=== PATIENT | male | born 1960 | race Caucasian/White ===

== ENCOUNTER → 2017-08-08 | Outpatient (CLI) | payer OTHER ==
[~2017-08-08] MED LIST: AMIT50 PO; Amoxicillin500 MG PO; Biaxin500 MG PO; HYDR1TAB94 PO; IBUP600 PO; IBUP800 PO; Naprosyn500 MG PO; Norco 5-325 Ta1 EACH PO; Omeprazole20 M1 PO; Percocet 5-3251 EACH PO; Protonix40 MG PO; Tylenol325 MG PO; Ultram50 MG PO
== END ==
LOC: LAB SHORT 18:30 → LAB 18:30
DX: L02.414 Cutaneous abscess of left upper limb (principal)
CPT/HCPCS: 87070; 87075; 87077; 87147; 87186; 87205

== ENCOUNTER 2017-11-06 20:10 | Emergency (ER) | payer OTHER ==
[~2017-11-06] VITALS: Ht 188 cm; Wt 86.2 kg
[2017-11-06] MEDS ORDERED: [UNRECOGNIZED DRUG - REMARK] (20:47)
[2017-11-06 21:03] LABS: BASOPHILS ABSOLUTE AUTO 0.07 K/mm3 (0.00-0.23); BASOPHILS PERCENT AUTO 1 % (0-2); EOSINOPHILS PERCENT AUTO 2 % (0-6); Hematocrit 42.6 % (37.0-53.0); Hemoglobin 14.3 g/dL (13.5-17.5); IMMATURE GRAN ABSOLUTE AUTO 0.02 K/mm3 (0.00-0.10); IMMATURE GRAN PERCENT AUTO 0 % (0-1); LYMPHOCYTES ABSOLUTE AUTO 1.61 K/mm3 (0.84-5.20); LYMPHOCYTES PERCENT AUTO 19 % (21-46); MONOCYTES ABSOLUTE AUTO 0.65 K/mm3 (0.16-1.47); MONOCYTES PERCENT AUTO 8 % (4-13); Mean Corpuscular HGB 30.1 pg (26.0-34.0); Mean Corpuscular HGB Conc 33.6 g/dL (31.5-36.5); Mean Corpuscular Volume 90 fL (80-100); Mean Platelet Volume 9.5 fL (9.1-12.4); NEUTROPHILS ABSOLUTE AUTO 5.82 K/mm3 (1.96-9.15); NEUTROPHILS PERCENT AUTO 70 % (41-73); Platelet Count 296 K/mm3 (150-400); RDW Coefficient Variation 12.8 % (11.7-14.2); RDW Standard Deviation 42.6 fL (35.1-46.3); Red Blood Cell Count 4.75 M/mm3 (4.30-5.90); White Blood Cell Count 8.37 K/mm3 (4.00-11.30)
[2017-11-06 21:22] LABS: Alanine Aminotransfer (ALT/SGP 17 U/L (12-78); Albumin/Globulin Ratio 1.2 (0.8-1.8); Alk Phos 87 U/L (50-136); Anion Gap 8 mmol/L (6-16); Aspartate Aminotrans (AST/SGOT 13 U/L (12-37); Blood Urea Nitrogen 18 mg/dL (8-24); Bun/Creatinine Ratio 20.4 (12.0-20.0); CO2, Blood 27 mmol/L (21-32); Chloride, Blood 102 mmol/L (98-108); Creatinine, Blood 0.88 mg/dL (0.60-1.20); Globulin, Blood 3.4 g/dL (2.2-4.0); Glomerular Filtration Rate >60 (60-); Glucose, Blood 87 mg/dL (70-99); Potassium, Blood 4.4 mmol/L (3.5-5.5); Sodium, Blood 137 mmol/L (136-145); Total Protein, Blood 7.4 g/dL (6.4-8.2); Troponin I <0.015 ng/mL (0.000-0.040)
== END 2017-11-06 23:38 | disposition home or self-care (01) ==
LOC: ER 20:10
PROVIDERS: Emergency Medicine
DX: M54.12 Radiculopathy, cervical region (principal); Z88.5 Allergy status to narcotic agent; Z87.891 Personal history of nicotine dependence
CPT/HCPCS: 36415; 71046; 80053; 84484; 85025; 93005; 93010; 96374; 99284-25; J1885

== ENCOUNTER 2017-12-07 04:52 | Emergency (ER) | payer OTHER ==
[~2017-12-07] VITALS: Ht 188 cm; Wt 88.5 kg
[~2017-12-07 04:52] MED LIST changes: +[UNRECOGNIZED DRUG - REMARK]
[2017-12-07] MEDS ORDERED: Ultram50 MG PO (05:22)
== END 2017-12-07 05:35 | disposition home or self-care (01) ==
LOC: ER 04:52
DX: G89.29 Other chronic pain (principal); M25.551 Pain in right hip; M25.552 Pain in left hip; Z88.5 Allergy status to narcotic agent; Z87.891 Personal history of nicotine dependence
CPT/HCPCS: 96372; 99283; J1885

== ENCOUNTER 2017-12-07 06:20 | Emergency (ER) | payer OTHER ==
[~2017-12-07] VITALS: Ht 188 cm; Wt 88.5 kg
== END 2017-12-07 07:09 | disposition home or self-care (01) ==
LOC: ER 06:20
DX: M17.11 Unilateral primary osteoarthritis, right knee (principal); Z87.891 Personal history of nicotine dependence
CPT/HCPCS: 73562-RT; 99283-25

== ENCOUNTER 2018-08-02 10:15 | Emergency (ER) | payer OTHER ==
[~2018-08-02] VITALS: Ht 188 cm; Wt 74.8 kg
[~2018-08-02 10:15] MED LIST changes: +CEPH500 PO
== END 2018-08-02 11:53 | disposition home or self-care (01) ==
LOC: ER 10:15
DX: M25.551 Pain in right hip (principal); Z87.891 Personal history of nicotine dependence; W18.30XA Fall on same level, unspecified, initial encounter
CPT/HCPCS: 73502; 99283-25

== ENCOUNTER 2018-08-14 07:02 | Emergency (ER) | payer OTHER ==
[~2018-08-14] VITALS: Ht 188 cm; Wt 77.1 kg
[2018-08-14] MEDS ORDERED: Augmentin 500-1 EACH PO (07:43)
== END 2018-08-14 09:18 | disposition home or self-care (01) ==
LOC: ER 07:02
DX: J18.1 Lobar pneumonia, unspecified organism (principal); Z88.5 Allergy status to narcotic agent; Z87.891 Personal history of nicotine dependence
CPT/HCPCS: 71046; 99283-25

== ENCOUNTER 2018-11-16 09:31 | Emergency (ER) | payer OTHER ==
[~2018-11-16] VITALS: Ht 188 cm; Wt 83.9 kg
[~2018-11-16 09:31] MED LIST changes: +Augmentin 500-1 EACH PO
[2018-11-16] MEDS ORDERED: HYDR1TAB94 PO (10:45)
[2018-11-16] MEDS ORDERED: Arthritis Pai42.5 GM TOP (10:45)
[2018-11-16] MEDS ORDERED: IBUP600 PO (10:45)
== END 2018-11-16 11:14 | disposition home or self-care (01) ==
LOC: ER 09:31
DX: M25.551 Pain in right hip (principal); G89.29 Other chronic pain; M19.90 Unspecified osteoarthritis, unspecified site; Z88.5 Allergy status to narcotic agent; Z87.891 Personal history of nicotine dependence
CPT/HCPCS: 73522; 99283-25; A9270-GY

== ENCOUNTER 2018-12-06 13:04 | Emergency (ER) | payer OTHER ==
[~2018-12-06] VITALS: Ht 175.3 cm; Wt 72.6 kg
[~2018-12-06 13:04] MED LIST changes: +Arthritis Pai42.5 GM TOP
== END 2018-12-06 15:18 | disposition home or self-care (01) ==
LOC: ER 13:04
DX: G89.29 Other chronic pain (principal); M25.551 Pain in right hip; Z88.5 Allergy status to narcotic agent; Z79.899 Other long term (current) drug therapy; Z87.891 Personal history of nicotine dependence
CPT/HCPCS: 99283; A9270-GY

== ENCOUNTER 2019-02-17 08:44 | Emergency (ER) | payer OTHER ==
[~2019-02-17] VITALS: Ht 185.4 cm; Wt 86.2 kg
[2019-02-17] MEDS ORDERED: Norco 5-325 Ta1 EACH PO ×2 (09:19→09:20)
[2019-02-17] MEDS ORDERED: CYCL10 PO (09:19)
== END 2019-02-17 10:15 | disposition home or self-care (01) ==
LOC: ER 08:44
DX: G89.29 Other chronic pain (principal); M25.551 Pain in right hip; M25.552 Pain in left hip; Z88.5 Allergy status to narcotic agent; Z87.891 Personal history of nicotine dependence
CPT/HCPCS: 36415; 96374; 96375; 99284-25; J1170; J2405

== ENCOUNTER 2019-04-02 22:06 | Emergency (ER) | payer OTHER ==
[~2019-04-02] VITALS: Ht 188 cm; Wt 88.5 kg
[~2019-04-02 22:06] MED LIST changes: +CYCL10 PO
== END 2019-04-03 01:41 | disposition home or self-care (01) ==
LOC: ER 22:06
DX: T24.132A Burn of first degree of left lower leg, initial encounter (principal); T31.0 Burns involving less than 10% of body surface; Z87.891 Personal history of nicotine dependence
CPT/HCPCS: 99283

== ENCOUNTER 2019-08-21 22:31 | Emergency (ER) | payer OTHER ==
[~2019-08-21] VITALS: Ht 188 cm; Wt 90.7 kg
== END 2019-08-21 23:37 | disposition home or self-care (01) ==
LOC: ER 22:31
DX: M16.0 Bilateral primary osteoarthritis of hip (principal); Z87.891 Personal history of nicotine dependence
CPT/HCPCS: 72170; 96372; 99283-25; A9270; J1885

== ENCOUNTER 2019-08-26 04:07 | Emergency (ER) | payer OTHER ==
[~2019-08-26] VITALS: Ht 182.9 cm; Wt 90.7 kg
== END 2019-08-26 05:16 | disposition home or self-care (01) ==
LOC: ER 04:07
DX: M25.551 Pain in right hip (principal); M25.552 Pain in left hip; G89.29 Other chronic pain; F17.200 Nicotine dependence, unspecified, uncomplicated
CPT/HCPCS: 99283

== ENCOUNTER 2019-09-30 13:07 | Emergency (ER) | payer OTHER ==
[~2019-09-30] VITALS: Ht 188 cm; Wt 95.2 kg
[2019-09-30] MEDS ORDERED: IBUP800 PO (19:35)
[2019-09-30] MEDS ORDERED: TRAM50 PO (19:35)
== END 2019-09-30 15:13 | disposition left against medical advice (07) ==
LOC: ER 13:07
DX: Z53.21 Procedure and treatment not carried out due to patient leaving prior to being seen by health care provider (principal)
CPT/HCPCS: 99283

== ENCOUNTER 2019-09-30 15:59 | Emergency (ER) | payer OTHER ==
[~2019-09-30] VITALS: Ht 188 cm; Wt 95.2 kg
[2019-09-30] MEDS ORDERED: TRAM50 PO (19:35)
[2019-09-30] MEDS ORDERED: IBUP800 PO (19:35)
== END 2019-09-30 19:56 | disposition home or self-care (01) ==
LOC: ER 15:59
DX: M16.0 Bilateral primary osteoarthritis of hip (principal); F17.200 Nicotine dependence, unspecified, uncomplicated
CPT/HCPCS: 96372; 99283-25; A9270-GY; J1885

== ENCOUNTER 2020-01-26 14:46 | Emergency (ER) | payer OTHER ==
[~2020-01-26] VITALS: Ht 188 cm; Wt 86.2 kg
[~2020-01-26 14:46] MED LIST changes: +TRAM50 PO
[2020-01-26] MEDS ORDERED: Bactrim Ds Tab1 EACH PO (15:44)
== END 2020-01-26 16:39 | disposition home or self-care (01) ==
LOC: ER 14:46
DX: L02.13 Carbuncle of neck (principal); F17.200 Nicotine dependence, unspecified, uncomplicated
CPT/HCPCS: 10060; 99283-25

== ENCOUNTER 2020-04-12 22:26 | Emergency (ER) | payer OTHER ==
[~2020-04-12] VITALS: Ht 188 cm; Wt 90.7 kg
[~2020-04-12 22:26] MED LIST changes: +Bactrim Ds Tab1 EACH PO
[2020-04-12] MEDS ORDERED: IBU600 MG PO (22:34)
== END 2020-04-12 23:25 | disposition home or self-care (01) ==
LOC: ER 22:26
DX: G89.29 Other chronic pain (principal); M25.552 Pain in left hip; M25.551 Pain in right hip; F17.200 Nicotine dependence, unspecified, uncomplicated
CPT/HCPCS: 96372; 99283-25; J1885

== ENCOUNTER 2020-04-30 18:24 | Emergency (ER) | payer OTHER ==
[~2020-04-30] VITALS: Ht 188 cm; Wt 99.8 kg
[~2020-04-30 18:24] MED LIST changes: +IBU600 MG PO
[2020-04-30] MEDS ORDERED: Voltaren100 GM TOP (19:28)
== END 2020-04-30 19:38 | disposition home or self-care (01) ==
LOC: ER 18:24
DX: M25.552 Pain in left hip (principal); M25.551 Pain in right hip; F17.200 Nicotine dependence, unspecified, uncomplicated
CPT/HCPCS: 96372; 99283-25; J1885

== ENCOUNTER 2020-05-09 18:21 | Emergency (ER) | payer OTHER ==
[~2020-05-09] VITALS: Ht 188 cm; Wt 99.8 kg
[~2020-05-09 18:21] MED LIST changes: +Voltaren100 GM TOP
== END 2020-05-09 20:26 | disposition home or self-care (01) ==
LOC: ER 18:21
DX: M25.551 Pain in right hip (principal); R07.89 Other chest pain; F17.200 Nicotine dependence, unspecified, uncomplicated; W06.XXXA Fall from bed, initial encounter
CPT/HCPCS: 71101; 73502; 99283-25

== ENCOUNTER 2020-08-21 20:51 | Emergency (ER) | payer OTHER ==
[~2020-08-21] VITALS: Ht 188 cm; Wt 95.2 kg
== END 2020-08-21 22:55 | disposition home or self-care (01) ==
LOC: ER 20:51
DX: M25.512 Pain in left shoulder (principal); Z87.891 Personal history of nicotine dependence
CPT/HCPCS: 73030; 99283-25

== ENCOUNTER 2021-03-23 14:39 | Emergency (ER) | payer OTHER ==
[~2021-03-23] VITALS: Ht 188 cm; Wt 95.2 kg
== END 2021-03-23 18:58 | disposition home or self-care (01) ==
LOC: ER 14:39
DX: M16.0 Bilateral primary osteoarthritis of hip (principal)
CPT/HCPCS: 73522; 99283-25; A9270

== ENCOUNTER 2021-12-14 02:50 | Emergency (ER) | payer OTHER ==
[~2021-12-14] VITALS: Ht 188 cm; Wt 104.3 kg
== END 2021-12-14 07:17 | disposition home or self-care (01) ==
LOC: ER 02:50
DX: M25.552 Pain in left hip (principal); F17.200 Nicotine dependence, unspecified, uncomplicated; W01.0XXA Fall on same level from slipping, tripping and stumbling without subsequent striking against object, initial encounter
CPT/HCPCS: 73502; 73700; 99284-25; A9270

== ENCOUNTER 2021-12-19 13:36 | Emergency (ER) | payer OTHER ==
[~2021-12-19] VITALS: Ht 188 cm; Wt 104.3 kg
[2021-12-19] MEDS ORDERED: IBUP600 PO (15:30)
== END 2021-12-19 18:16 | disposition home or self-care (01) ==
LOC: ER 13:36
DX: M25.552 Pain in left hip (principal); W01.0XXA Fall on same level from slipping, tripping and stumbling without subsequent striking against object, initial encounter; Z87.891 Personal history of nicotine dependence
CPT/HCPCS: 73523; 96372; 99283-25; J1885

== ENCOUNTER 2021-12-29 13:40 | Emergency (ER) | payer OTHER ==
[~2021-12-29] VITALS: Ht 188 cm; Wt 99.8 kg
== END 2021-12-29 19:00 | disposition home or self-care (01) ==
LOC: ER 13:40
DX: M25.552 Pain in left hip (principal); M25.551 Pain in right hip; M19.90 Unspecified osteoarthritis, unspecified site; Z59.00 Homelessness unspecified; Z87.891 Personal history of nicotine dependence
CPT/HCPCS: J1885

== ENCOUNTER 2021-12-30 13:39 | Emergency (ER) | payer OTHER ==
[~2021-12-30] VITALS: Ht 188 cm; Wt 99.8 kg
== END 2021-12-30 17:02 | disposition home or self-care (01) ==
LOC: ER 13:39
DX: M16.12 Unilateral primary osteoarthritis, left hip (principal); G89.29 Other chronic pain; Z87.891 Personal history of nicotine dependence; W19.XXXA Unspecified fall, initial encounter
CPT/HCPCS: 73502; 99283-25

== ENCOUNTER → 2022-01-21 | Emergency (ER) | payer OTHER ==
[~2022-01-21] VITALS: Ht 167.6 cm; Wt 99.8 kg
== END ==
LOC: ER 22:31
DX: M25.551 Pain in right hip (principal); M25.552 Pain in left hip; Z87.891 Personal history of nicotine dependence; W05.0XXA Fall from non-moving wheelchair, initial encounter
CPT/HCPCS: 73502

== ENCOUNTER 2022-02-07 | Emergency (ER) | payer OTHER ==
[2022-02-07] MEDS ORDERED: LIDO700A20 TOP (19:20)
[2022-02-07] MEDS ORDERED: IBUP600 PO (19:20)
== END 2022-02-07 02:30 | disposition home or self-care (01) ==
DX: M16.0 Bilateral primary osteoarthritis of hip (principal); Z87.891 Personal history of nicotine dependence; Z59.00 Homelessness unspecified

== ENCOUNTER 2022-02-07 17:48 | Emergency (ER) | payer OTHER ==
[2022-02-07] MEDS ORDERED: LIDO700A20 TOP (19:20)
[2022-02-07] MEDS ORDERED: IBUP600 PO (19:20)
== END 2022-02-07 19:49 | disposition home or self-care (01) ==
DX: M16.0 Bilateral primary osteoarthritis of hip (principal); Z87.891 Personal history of nicotine dependence

== ENCOUNTER 2022-02-10 03:10 | Emergency (ER) | payer OTHER ==
[~2022-02-10] VITALS: Ht 188 cm; Wt 99.8 kg
[~2022-02-10 03:10] MED LIST changes: +LIDO700A20 TOP
[2022-02-10] MEDS ORDERED: ACET500 PO (06:51)
[2022-02-10] MEDS ORDERED: IBUP400 PO (06:51)
== END 2022-02-10 07:30 | disposition home or self-care (01) ==
LOC: ER 03:10
DX: M16.0 Bilateral primary osteoarthritis of hip (principal); G89.29 Other chronic pain; Z87.891 Personal history of nicotine dependence; W05.0XXA Fall from non-moving wheelchair, initial encounter
CPT/HCPCS: 73502; J1885

== ENCOUNTER 2022-02-13 20:45 | Emergency (ER) | payer OTHER ==
[~2022-02-13] VITALS: Ht 188 cm; Wt 99.8 kg
[~2022-02-13 20:45] MED LIST changes: +ACET500 PO; +IBUP400 PO
== END 2022-02-13 23:36 | disposition home or self-care (01) ==
LOC: ER 20:45
DX: R41.0 Disorientation, unspecified (principal); F12.10 Cannabis abuse, uncomplicated; Z87.891 Personal history of nicotine dependence
CPT/HCPCS: 99284

== ENCOUNTER 2022-03-02 14:16 | Emergency (ER) | payer OTHER ==
[~2022-03-02] VITALS: Ht 182.9 cm; Wt 86.2 kg
[2022-03-02] MEDS ORDERED: Prednisone20 MG PO (14:40)
[2022-03-02] MEDS ORDERED: PERM5TC TOP (14:40)
== END 2022-03-02 14:42 | disposition home or self-care (01) ==
LOC: ER 14:16
DX: B86 Scabies (principal); Z87.891 Personal history of nicotine dependence
CPT/HCPCS: 99283

== ENCOUNTER 2022-08-05 16:45 | Emergency (ER) | payer OTHER ==
[~2022-08-05] VITALS: Ht 188 cm; Wt 99.8 kg
[~2022-08-05 16:45] MED LIST changes: +PERM5TC TOP; +Prednisone20 MG PO
[2022-08-05 16:51] VITALS: BP 150/82
[2022-08-05] MEDS ORDERED: NAPR500 PO (18:15)
== END 2022-08-05 18:25 | disposition home or self-care (01) ==
LOC: ER 16:45
DX: M25.551 Pain in right hip (principal); M25.552 Pain in left hip; Z87.891 Personal history of nicotine dependence
CPT/HCPCS: J1885

== ENCOUNTER 2022-08-15 02:20 | Emergency (ER) | payer OTHER ==
[~2022-08-15] VITALS: Ht 170.2 cm; Wt 81.7 kg
[~2022-08-15 02:20] MED LIST changes: +NAPR500 PO
[2022-08-15 02:28] VITALS: BP 139/83
== END 2022-08-15 04:53 | disposition home or self-care (01) ==
LOC: ER 02:20
DX: M25.552 Pain in left hip (principal); G89.29 Other chronic pain; Z59.00 Homelessness unspecified; Z79.899 Other long term (current) drug therapy; Z87.891 Personal history of nicotine dependence
CPT/HCPCS: 73502; 99283-25

== ENCOUNTER 2022-08-15 20:37 | Emergency (ER) | payer OTHER ==
[~2022-08-15] VITALS: Ht 188 cm; Wt 99.8 kg
[2022-08-15 20:58] VITALS: BP 137/81
== END 2022-08-16 00:21 | disposition home or self-care (01) ==
LOC: ER 20:37
DX: R41.0 Disorientation, unspecified (principal); R51.9 Headache, unspecified; G93.89 Other specified disorders of brain; R41.3 Other amnesia; Z79.899 Other long term (current) drug therapy; Z87.891 Personal history of nicotine dependence
CPT/HCPCS: 70450; 99285-25; A9270

== ENCOUNTER 2022-11-08 00:15 | Emergency (ER) | payer OTHER ==
[~2022-11-08] VITALS: Ht 188 cm; Wt 102.1 kg
[2022-11-08 00:21] VITALS: BP 150/96
== END 2022-11-08 00:34 | disposition home or self-care (01) ==
LOC: ER 00:15
DX: M16.0 Bilateral primary osteoarthritis of hip (principal); F17.290 Nicotine dependence, other tobacco product, uncomplicated
CPT/HCPCS: 99282

== ENCOUNTER 2022-11-19 17:57 | Emergency (ER) | payer OTHER ==
[~2022-11-19] VITALS: Ht 188 cm; Wt 99.8 kg
[2022-11-19 18:12] VITALS: BP 148/96
== END 2022-11-19 19:34 | disposition home or self-care (01) ==
LOC: ER 17:57
DX: M16.0 Bilateral primary osteoarthritis of hip (principal); Z87.891 Personal history of nicotine dependence
CPT/HCPCS: 73502; 96372; 99283-25; J1885

== ENCOUNTER 2022-11-22 23:36 | Emergency (ER) | payer OTHER ==
[~2022-11-22] VITALS: Ht 175.3 cm; Wt 90.7 kg
[2022-11-23 00:31] VITALS: BP 143/93
== END 2022-11-23 03:15 | disposition home or self-care (01) ==
LOC: ER 23:36
DX: M25.552 Pain in left hip (principal); M25.551 Pain in right hip; Z87.891 Personal history of nicotine dependence
CPT/HCPCS: 99283

== ENCOUNTER 2022-11-29 16:59 | Inpatient (IN) | payer OTHER ==
[~2022-11-29] VITALS: Ht 188 cm; Wt 105.0 kg
[2022-11-29] MEDS ORDERED: NAPR500 PO (17:42)
[2022-11-29] MEDS ORDERED: ACET325 PO (17:42)
[2022-11-29 18:24] LABS: BASOPHILS ABSOLUTE AUTO 0.08 K/mm3 (0.00-0.23); BASOPHILS PERCENT AUTO 0 % (0-2); EOSINOPHILS ABSOLUTE AUTO 0.05 K/mm3 (0.00-0.68); EOSINOPHILS PERCENT AUTO 0 % (0-6); Hematocrit 46.5 % (37.0-53.0); Hemoglobin 15.9 g/dL (13.5-17.5); IMMATURE GRAN ABSOLUTE AUTO 0.09 K/mm3 (0.00-0.10); IMMATURE GRAN PERCENT AUTO 1 % (0-1); LYMPHOCYTES ABSOLUTE AUTO 0.65 K/mm3 (0.84-5.20); LYMPHOCYTES PERCENT AUTO 4 % (21-46); MONOCYTES ABSOLUTE AUTO 1.21 K/mm3 (0.16-1.47); MONOCYTES PERCENT AUTO 6 % (4-13); Mean Corpuscular HGB 29.9 pg (26.0-34.0); Mean Corpuscular HGB Conc 34.2 g/dL (31.5-36.5); Mean Corpuscular Volume 87 fL (80-100); NEUTROPHILS ABSOLUTE AUTO 16.71 K/mm3 (1.96-9.15); NEUTROPHILS PERCENT AUTO 89 % (41-73); Platelet Count 314 K/mm3 (150-400); RDW Standard Deviation 41.8 fL (35.1-46.3); Red Blood Cell Count 5.32 M/mm3 (4.30-5.90); White Blood Cell Count 18.79 K/mm3 (4.00-11.30)
[2022-11-29 18:51] LABS: Albumin, Blood 3.5 g/dL (3.4-5.0); Albumin/Globulin Ratio 0.9 (0.8-1.8); Bilirubin, Total 1.7 mg/dL (0.1-1.0); Bun/Creatinine Ratio 36.2 (12.0-20.0); Calcium, Blood 9.6 mg/dL (8.5-10.1); Creatinine, Blood 0.72 mg/dL (0.60-1.20); Total Protein, Blood 7.5 g/dL (6.4-8.2)
[2022-11-29 22:11] VITALS: BP 156/93
[2022-11-30 01:19] LABS: BASOPHILS ABSOLUTE AUTO 0.08 K/mm3 (0.00-0.23); BASOPHILS PERCENT AUTO 1 % (0-2); EOSINOPHILS ABSOLUTE AUTO 0.13 K/mm3 (0.00-0.68); EOSINOPHILS PERCENT AUTO 1 % (0-6); Hematocrit 43.1 % (37.0-53.0); Hemoglobin 14.8 g/dL (13.5-17.5); IMMATURE GRAN ABSOLUTE AUTO 0.05 K/mm3 (0.00-0.10); IMMATURE GRAN PERCENT AUTO 0 % (0-1); LYMPHOCYTES PERCENT AUTO 5 % (21-46); MONOCYTES ABSOLUTE AUTO 1.06 K/mm3 (0.16-1.47); MONOCYTES PERCENT AUTO 6 % (4-13); Mean Corpuscular HGB 30.3 pg (26.0-34.0); Mean Corpuscular HGB Conc 34.3 g/dL (31.5-36.5); Mean Corpuscular Volume 88 fL (80-100); Mean Platelet Volume 9.9 fL (9.1-12.4); NEUTROPHILS ABSOLUTE AUTO 14.41 K/mm3 (1.96-9.15); NEUTROPHILS PERCENT AUTO 87 % (41-73); Platelet Count 269 K/mm3 (150-400); RDW Coefficient Variation 12.9 % (11.7-14.2); RDW Standard Deviation 42.2 fL (35.1-46.3); Red Blood Cell Count 4.88 M/mm3 (4.30-5.90); White Blood Cell Count 16.63 K/mm3 (4.00-11.30)
[2022-11-30 01:55] LABS: Bun/Creatinine Ratio 34.2 (12.0-20.0); Calcium, Blood 8.7 mg/dL (8.5-10.1); Creatinine, Blood 0.67 mg/dL (0.60-1.20)
[2022-11-30 03:42] VITALS: BP 141/80
--- NOTE | 2022-11-30 06:55 | NUR ---
Shift Summary Pt arrived to this unit from ER with Dx of LLE cellulits. Pt was lying on his left side on the concrete for 4 days and has multiple pressure ulcers on his L side, most notably on his L hip and foot. He is very weak, hardly able to move his L arm and his R arm is not much better. Eyes are PERRLA. Pt was very thirsty upon arrival to the unit and drank over 2L. He is continent but has a difficult time urinating. His legs are contractured and he cannot seperate his knees at this time. His skin is red and flushed from wounds, sunburn and cellulitis. He is missing all of this teeth, can eat small torn pieces of a sandwitch but requires feeding because arms are too weak. He is AOx4, cooperative with care.
[2022-11-30 08:00] VITALS: BP 149/89
--- NOTE | 2022-11-30 11:29 | NUR ---
PT WAS BATHED AND WOUNDS CLEANSED AND MEPILEX IN PLACE. WOUND CARE CONSULTATION ORDERED.
[2022-11-30 14:22] LABS: Potassium, Blood 4.1 mmol/L (3.5-5.5)
[2022-11-30 15:06] VITALS: BP 115/64
--- NOTE | 2022-11-30 15:30 | NUR ---
COAL WHEELER ATTEMPTED TO SEE PT HOWEVER PT WAS WORKING WITH PHYSICAL THERAPY AT THE TIME. WOUND CARE WILL SEE PT IN THE MORNING.
--- NOTE | 2022-11-30 16:54 | NUR ---
SHIFT SUMMARY PT IS ALERT AND ORIENTED X4. CALM AND COOPERATIVE WITH CARES. TREATED PAIN PER EMAR. BEDREST WITH CONTRACTURES. PT/OT WORKED WITH PT TODAY. WOUND CARE WILL SEE HIM TOMORROW MORNING. TRACED REDDEND AREA ON LLE AND LUE. NO ACUTE CHANGES TODAY. BED IS IN THE LOWEST POSITION WITH CALL LIGHT IN REACH. CALLS APPROPRIATELY
[2022-11-30 19:34] VITALS: BP 116/64
[2022-12-01 03:39] VITALS: BP 101/56
--- NOTE | 2022-12-01 05:07 | NUR ---
SHIFT SUMMARY: NO ACUTE EVENTS. BEDFAST, DECLINED TO BE REPOSITIONED EXCEPT FOR VERY SMALL CHANGES. EDUCATED ABOUT IMPORTANCE OF OFF LOADING PRESSURE TO EXTREMITIES TO PREVENT FURTHER ULCERATIONS BUT STILL DECLINED. C/O 910 PAIN IN LUE AND LLE; MEDICATED PER EMAR, SLEPT AFTER PAIN MEDS GIVEN. CONDOM CATH DRAINING ADEQUATE URINE. NO BM THIS SHIFT. REQUESTED SANDWICHES, HAD TO BE FED. EDUCATED HIM THAT HE NEEDS TO MOVE HIS ARMS IN ORDER TO RESTORE MOBILITY. LACKS INSIGHT INTO HIS CURRENT SITUATION AND NEEDS GOING FORWARD.
[2022-12-01 07:45] LABS: BASOPHILS ABSOLUTE AUTO 0.04 K/mm3 (0.00-0.23); BASOPHILS PERCENT AUTO 1 % (0-2); EOSINOPHILS ABSOLUTE AUTO 0.43 K/mm3 (0.00-0.68); EOSINOPHILS PERCENT AUTO 6 % (0-6); Hematocrit 37.1 % (37.0-53.0); Hemoglobin 12.7 g/dL (13.5-17.5); IMMATURE GRAN ABSOLUTE AUTO 0.02 K/mm3 (0.00-0.10); IMMATURE GRAN PERCENT AUTO 0 % (0-1); LYMPHOCYTES ABSOLUTE AUTO 0.88 K/mm3 (0.84-5.20); LYMPHOCYTES PERCENT AUTO 11 % (21-46); MONOCYTES ABSOLUTE AUTO 0.66 K/mm3 (0.16-1.47); MONOCYTES PERCENT AUTO 8 % (4-13); Mean Corpuscular HGB 29.7 pg (26.0-34.0); Mean Corpuscular HGB Conc 34.2 g/dL (31.5-36.5); Mean Corpuscular Volume 87 fL (80-100); Mean Platelet Volume 10.4 fL (9.1-12.4); NEUTROPHILS ABSOLUTE AUTO 5.79 K/mm3 (1.96-9.15); NEUTROPHILS PERCENT AUTO 74 % (41-73); Platelet Count 246 K/mm3 (150-400); RDW Coefficient Variation 12.8 % (11.7-14.2); RDW Standard Deviation 40.9 fL (35.1-46.3); Red Blood Cell Count 4.28 M/mm3 (4.30-5.90); White Blood Cell Count 7.82 K/mm3 (4.00-11.30)
[2022-12-01 07:48] VITALS: BP 121/75
[2022-12-01 08:06] LABS: Albumin, Blood 2.2 g/dL (3.4-5.0); Anion Gap 6 mmol/L (6-16); Blood Urea Nitrogen 19 mg/dL (8-24); Bun/Creatinine Ratio 30.1 (12.0-20.0); CO2, Blood 23 mmol/L (21-32); Calcium, Blood 7.9 mg/dL (8.5-10.1); Chloride, Blood 110 mmol/L (98-108); Creatinine, Blood 0.63 mg/dL (0.60-1.20); Glomerular Filtration Rate 108 (60-); Glucose, Blood 96 mg/dL (70-99); Magnesium, Blood 1.9 mg/dL (1.6-2.4); Phosphorus, Blood 2.9 mg/dL (2.5-4.9); Potassium, Blood 3.2 mmol/L (3.5-5.5); Sodium, Blood 139 mmol/L (136-145)
--- NOTE | 2022-12-01 15:51 | NUR ---
SHIFT SUMMARY PT IS ALERT AND ORIENTED X4. CALM AND COOPERATIVE. TREATED PAIN PER EMAR. PT L GREAT TOE NAIL IS COMMING OFF. NO ACUTE CHANGES THIS SHIFT. BED IS IN THE LOWEST POSITION WITH CALL LIGHT IN REACH. SLIGHT IMPROVEMENT WITH USE OF LEFT ARM.
[2022-12-01 16:16] VITALS: BP 139/73
[2022-12-01 20:28] VITALS: BP 145/70
--- NOTE | 2022-12-02 02:51 | NUR ---
REQUESTED AIR MATTRESS BE ORDERED FOR THIS PATIENT, SPOKE TO Vj ARANDA, CLINICAL COORDINATOR. POSSIBLE DELIVERY LATE TODAY.
--- NOTE | 2022-12-02 05:46 | NUR ---
SHIFT SUMMARY: C/O 11/20 PAIN "ALL OVER"; MEDICATED PER EMAR, GAVE SEVERAL WARM BLANKETS, PLACED HEATING PAD, AND REPOSITIONED HE COULD TOLERATE BUT PAIN NEVER WENT BELOW 7/10. HOPEFULLY WILL GET AIR MATTRESS AT SOME POINT TODAY. DOES VERY LITTLE FOR HIMSELF. ENCOURAGED HIM TO START DRINKING WATER INSTEAD OF ROOT BEER ONLY HIS URINE IS MALODOROUS AND CONCENTRATED. HAD BM LAST NIGHT. DID NOT SLEEP WELL.
[2022-12-02 08:18] VITALS: BP 169/100
[2022-12-02 11:50] LABS: Bun/Creatinine Ratio 30.4 (12.0-20.0); Calcium, Blood 8.3 mg/dL (8.5-10.1); Creatinine, Blood 0.49 mg/dL (0.60-1.20); Potassium, Blood 3.5 mmol/L (3.5-5.5)
[2022-12-02 17:26] VITALS: BP 146/74
--- NOTE | 2022-12-02 17:27 | NUR ---
SHIFT SUMMARY PATIENT ALERT AND INTERACTIVE. YELLING OUT AT START OF SHIFT FOR NURSE AND JUST YELLING. PATIENT EDUCATED ON USE OF CALL LIGHT AND DISRUPTING OTHER PATIENTS WITH YELLING. PATIENT APOLOGIZED AND AGREED TO USE CALL LIGHT. PATIENT CONTINUES TO HAVE PAIN ALL OVER AND COMPLAINING OF SPASMS EVERYWHERE. PATIENT MEDICATED FOR PAIN AND ORDER OBTAINED FOR A MUSCLE RELAXER. PAIN IMPROVED SOME BY END OF SHIFT. PATIENT BATHED AND WOUND CARE PROVIDED BECAUSE DRESSINGS FALLING OFF OF WOUNDS. PATIENT CONTINUES TO BE CONTRACTED AND STATING HE IS UNABLE TO DO THINGS FOR HIMSELF. PATIENT FEELS HE IS GOING TO BE ABLE TO GO TO THE [facility] AND IMPROVE CURRENT SITUATION RELATED TO CONTRACTURES. PATIENT IS HOPEFUL THAT HE WILL GET SURGERY ON HIS HIPS SOON SO HE CAN WALK AGAIN. CONDOM CATHETER REPLACED DURING BATH. EGG CRATE PLACED TO HELP WITH DISCOMFORT. WOUND CARE TO CONTINUE TO FOLLOW WOUNDS.
[2022-12-03 05:16] VITALS: BP 143/74
[2022-12-03 05:45] LABS: Hematocrit 37.7 % (37.0-53.0); Hemoglobin 12.9 g/dL (13.5-17.5); Mean Corpuscular HGB 29.1 pg (26.0-34.0); Mean Corpuscular HGB Conc 34.2 g/dL (31.5-36.5); Mean Corpuscular Volume 85 fL (80-100); Mean Platelet Volume 9.7 fL (9.1-12.4); Platelet Count 314 K/mm3 (150-400); RDW Coefficient Variation 12.7 % (11.7-14.2); RDW Standard Deviation 39.5 fL (35.1-46.3); Red Blood Cell Count 4.43 M/mm3 (4.30-5.90)
[2022-12-03 06:08] LABS: Bun/Creatinine Ratio 30.5 (12.0-20.0); Calcium, Blood 8.6 mg/dL (8.5-10.1); Creatinine, Blood 0.53 mg/dL (0.60-1.20); Potassium, Blood 3.7 mmol/L (3.5-5.5)
--- NOTE | 2022-12-03 07:37 | NUR ---
SHIFT SUMMARY PATIENT A/Ox4, CALLING OUT TO HAVE NEEDS ADDRESSED. STATES HE IS UNABLE TO USE CALL LIGHT. CONTINUES TO C/O GENERALIZED PAIN AND MUSCLE SPASMS TO BODY AND TO HIPS, MEDICATED PER MAR. CONTINUES ON CONTACT PRECAUTIONS FOR Hx OF MRSA. NO ACUTE CHANGES NOTED OVERNIGHT. BED LOW, CALL LIGHT WITHIN REACH.
[2022-12-03 07:45] VITALS: BP 110/82
[2022-12-03 15:12] VITALS: BP 143/78
--- NOTE | 2022-12-03 19:38 | NUR ---
PT A&OX4. PT C/O PAIN T/O DAY AND WAS MEDICATED PER EMAR WITH LITTLE RELIEF. PT ALSO FREQUENTLY REPOSITIONED AND GIVEN WARM BLANKETS D/T PAIN. PT USES CALL LIGHT OFTEN OR CALLS OUT TO THE GARCIA FOR NEEDS. PT ANXIOUS AND IRRITABLE AT TIMES. PT INCONTINET OF BOWEL AND HAD BM TODAY. DRESSINGS ON L SHOULDER, L HIP, AND LEFT FOOT CHANGED PER WOUND CARE ORDERS TODAY. PT VERY DIAPHORETIC T/O DAY AND MEPALEX DRESSING ON SHOLDER HAD TO BE REPLACED A COUPLE TIMES. PT ASSISTED WITH FEEDING AND DRINKING FLUIDS T/O DAY. BED IN LOWEST POSITION AND CALL LIGHT IN REACH. REPORT GIVEN TO BOOT TRIMMER NURSE.
[2022-12-03 20:28] VITALS: BP 149/89
--- NOTE | 2022-12-04 02:51 | NUR ---
PT YELLING AND PUSHING CALL WATKINS. PT IS A&OX3. PT NEEDS ASSISTANCE TO VOID TO URINAL REMOVED CONDOM CATH VOIDING ASHLIE YELLOW. PT CONTINUES TO EXPRESS PAIN WIH CONTRACTURES DEMANDS TO SLEEP ON FLOOR LIKE HE NORMALLY DOES HE IS CURRENTLY HOMELESS. PT REQUESTS IV BE REMOVED AND DISCHARGED TO STREET OR SHELTER. PT HAS THREE LEFT SIDED WOUNDS TO SHOULDER, HIP AND FOOT REDRESSED WITH MEPLEX. PT IS UNABLE TO SELF CARE DEPENDENT 2P ASSIST. BED LOWERED CALL WATKINS WITHIN REACH WILL CONTINUE TO MONITOR.
[2022-12-04 03:50] VITALS: BP 158/93
[2022-12-04 05:30] VITALS: BP 149/93
[2022-12-04 07:46] VITALS: BP 144/94
[2022-12-04 16:35] VITALS: BP 138/82
--- NOTE | 2022-12-04 19:57 | NUR ---
SHIFT SUMMARY PT A&OX4. PT C/O PAIN T/O SHIFT. MEDICATED PER EMAR WITH LITTLE EFFECT. PT REPOSITIONED FREQUENTLY DUE TO PAIN. PT WILL ATTEMPT TO USE URINAL INDPENDENTLY BUT WOULD REQUENTLY SOAK THE BED. PT HAD DIFFICUTL TIME URINATING WHEN ASSISTED BY STAFF. DR CHRISTENSEN ASSESSED WOUND ON LEFT HIP. WOUND CONSULT ORDERED. PT ALSO HAD X-RAY OF HIPS THIS EVENING. CONTINUING ORAL ABX. VSS. BED INLOWEST POSITION AND CALL LIGHT IN REACH.
[2022-12-04 21:40] VITALS: BP 143/78
--- NOTE | 2022-12-05 05:58 | NUR ---
SHIFT SUMMARY PATIENT MEDICATED FOR PAIN X5, PATIENT DENIES NAUSEA AND SHORTNESS OF BREATH. PATIENT IS A&O X4. PATIENT IS WHEELCHAIR BOUND AT BASELINE. PATIENT LEGS DO NOT EXTEND TO STRAIGHTEN OUT. PATIENT ARMS VERY SIFF. PATIENT NEEDS ASSISTANCE WITH EATING. PATIENT HAS COOPER VERY FREQUENTLY THROUGHOUT NIGHT. PATIENT REPORTS 10/10 PAIN THAT IS CONSTANT DESPITE THE PAIN MEDICATION. PATIENT REPORTS PAIN IS IN BOTH HIPS. PATIENT SCREAMING OUT IN PAIN OCCASSIONALLY. NOTIFIED, ADDITIONAL ONE TIME PAIN MEDICATION ORDERED. DRESSINGS TO WOUNDS ARE C/D/I. PATIENT PLEASANT AND COOPERATIVE WITH CARE.
[2022-12-05 07:04] LABS: Hematocrit 39.9 % (37.0-53.0); Hemoglobin 13.6 g/dL (13.5-17.5); Mean Corpuscular HGB 29.4 pg (26.0-34.0); Mean Corpuscular HGB Conc 34.1 g/dL (31.5-36.5); Mean Corpuscular Volume 86 fL (80-100); Mean Platelet Volume 9.5 fL (9.1-12.4); Platelet Count 417 K/mm3 (150-400); RDW Standard Deviation 40.6 fL (35.1-46.3); Red Blood Cell Count 4.63 M/mm3 (4.30-5.90); White Blood Cell Count 10.89 K/mm3 (4.00-11.30)
[2022-12-05 07:44] LABS: Bun/Creatinine Ratio 33.3 (12.0-20.0); Calcium, Blood 8.9 mg/dL (8.5-10.1); Creatinine, Blood 0.51 mg/dL (0.60-1.20)
[2022-12-05 08:21] VITALS: BP 133/87
[2022-12-05 16:32] VITALS: BP 133/76
--- NOTE | 2022-12-05 18:33 | NUR ---
SHIFT SUMMARY- PT PAIN SEEMS A LITTLE MORE MANAGED THIS EVENING, ADDED IN NAPROSYN BID, AND IT SEEMS TO BE DULING THE PAIN A BIT. 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 THE PT HAS BEEN IN A WHEEL CHAIR BUT ABLE TO MOTORIZE THE WHEEL CHAIR WITH HIS HANDS AND USING HIS FEET TO "WALK" IN THE CHAIR. AT THIS TIME THE PT IS NOWHERE NEAR THAT BASELINE STRENGTH. ENCOURAGED THE PT TO WORK WITH PHYSICAL THERAPY TO IMPROVE ROM AND STRENGTH. MD IS AWARE OF THE PT NORMAL BASELINE, AND HOW MUCH HE NEEDS TO IMPROVE TO BE AT THAT BASELINE. PT MAY REQUIRE PLACEMENT AT DISCHARGE. PT IS CURRENTLY IN BED CALL LIGHT IN REACH NO S&S OF DISTRESS NOTED.
[2022-12-05 20:03] VITALS: BP 133/71
--- NOTE | 2022-12-06 04:04 | NUR ---
SHIFT SUMMARY PT A&0 X4, COOPERATIVE WITH CARE BUT IRRITABLE ABOUT PAIN MANAGEMENT. 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 LEGS ARE VERY STIFF MAKING IT VERY DIFFICULT TO MOVE PATIENTS LEGS. DRESSING TO WOUNDS ARE C/D/I. PT REQUIRES WHEELCHAIR AT BASELINE. HOWEVER THIS IS NOT THE PTS BASELINE AND CURRENTLY THE ROM DUE TO CONTRACTURES IS VERY LIMIITED. PT COMPLAINED OF PAIN IN SHOULDER AND HIPS-TREATED PER EMAR AND FREQUENT POSITON CHNAGES. PT IS CONTINENT/INCONTINENT. OCCASIONALLY USES URINAL. PER NOTES CASE MANAGEMTN IS CONDUCTING INTERVIEW TODAY IN REGARDS TO LTC. PT CURRENTLY SLEEPING IN BED WITH BED IN LOWEST POSITION AND CALL LIGHT WITHIN REACH. WILL CONTINUE TO MONITOR UNTIL END OF SHIFT.
[2022-12-06 07:37] VITALS: BP 127/69
[2022-12-06 15:08] VITALS: BP 119/81
--- NOTE | 2022-12-06 18:40 | NUR ---
SHIFT SUMMARY- PT MEDICATED FOR PAIN T/O THE SHIFT. PT HAS BEEN DIAPHORETIC WHEN STAFF ENTER THE ROOM TO CARE FOR HIM QUITE OFTEN. PT DID WORK WITH PHYSICAL THERAPY TODAY. HE IS STILL VERY WEAK AND NOT BACK TO HIS BASELINE CURRENTLY. PT STATED TODAY HE WANTS TO GIVE UP, "IF THEY DISCHARGE ME BACK TO THE STREET LIKE THIS, ITS A SENTENCE." THE PT HAS BEEN PLEASENT AND COOPERATIVE WITH ALL CARE PROVIDED TODAY. PT CURRENTLY IN BED CALL LIGHT IN REACH NO S&S OF DISTRESS NOTED.
[2022-12-06 19:54] VITALS: BP 140/84
[2022-12-07 01:42] VITALS: BP 118/79
--- NOTE | 2022-12-07 05:05 | NUR ---
SHIFT SUMMARY PT A&O, COOPERATIVE WITH CARE BUT BECOMES IRRITABLE. PT HAS BEEN COMPLAINING OF HIP/LEG PAIN. REPOSITIONED, OFFER HEAT THERAPY, STRAIGHTENED CONTRACTURED LEGS, AND MEDICATED PER EMAR. PT STATES THE BED IS UNCOMFORTABLE AND CAUSING HIM SO MUCH PAIN. PT IS HOMELESS AND SAYS HE WOULD BE BETTER OFF SLEEPING ON THE FLOOR. REMOVED PT EGG CRATE MATTRESS PER HIS REQUEST. VSS. MEPILEX IN PLACE OVER LEFT SHOULDER, LEFT HIP, AND FOOT. BED KEPT IN LOWEST POSITION WITH CALL LIGHT WITHIN REACH. PT KNOWS HOW TO CALL FOR NEEDS. WILL CONTINUE TO MONITOR UNTIL END OF SHIFT.
[2022-12-07 07:42] VITALS: BP 140/110
--- NOTE | 2022-12-07 12:33 | NUR ---
PT WAS TRANSFERED ONTO AN AIR BED TODAY. HE STATES THE PAIN IS IMPROVED WITH JUST THE NEW MATRESS. SPOKE TO DR ABLERT ABUT PAIN MANAGEMENT, OXY DOSE WAS INCREASED. BED BATH PERFORMED WHEN MOTO MIX OPERATOR WAS DOING DRESSING CHANGES. MOTO MIX OPERATOR BILLY CALLED DR ALBERT ABOUT THE POSSIBLE NEED OF I&D OF THE PT HIP WOUND. SURGICAL CONSULT WAS PLACED BY DR ALBERT. PT HAD A CALL FROM A PERSON WHO STATED SHE WAS HIS ADVOCATE THROUGH [facility], SHE REQUESTED THE PT SIGN INFORMATION RELEASE WELL VERBAL RELEASE OF INFORMATION. THE PT ASKED THIS RN TO SPEAK TO HER ABOUT HIS MEDICAL CARE. HER TONE AND HER VERBAGE CONVEYED A DESIRE FOR CONFRONTATION. PER THE PT REQUEST THIS RN SPOKE TO HER BRIEFLY. SHE ASKED QUESTIONS LIKE; WHY IS HE NOT GETTING THE CARE HE DESERVES? HE IS ENTITLED TO CARE THROUGH THE MEDICARE AND HE SHOULD BE TREATED FAIRLY. THIS RN EXPLAINED THAT THE PT IS BEING TREATED PER EMAR FOR PAIN, AND THAT THIS RN CAN NOT CHANGE OR CREATE ORDERS PER HER REQUEST. THIS RN HAS ADDED HEATING PADS AND REQUESTED A DIFFERENT TYPE OF MATRESS FOR THIS PT BUT WAS UNABLE TO OBTAIN ONE (UNTIL TODAY THIS WAS AT 0800 AND BED HAD NOT BEEN OBTAINED YET). SHE WAS INFORMED THAT THIS RN ONLY KNOWS HOW TO OBTAIN THINGS FOR PATIENTS A BEDSIDE RN AND SHE WILL HAVE TO SPEAK TO SOMEONE ELSE IF SHE NEEDS TO OBTAIN GOODS OR SERVICES FOR THE PT, SHE STATED THIS IS HER JOB, IT IS OUTSIDE THIS RNS KNOWLEDGE OF HOW TO DO THIS.
--- NOTE | 2022-12-07 12:42 | NUR ---
WOUND CARE WOUNDS CLEANSED AND REDRESSED. L FOOT WOUND IS IMPROVING. WOUND BED BEEFY RED WITH NEW GRANULATION TISSUE. ATTEMPT AT AUTOLYTIC DEBRIDEMENT TO L HIP HAS NOT BEEN SUCCESSFUL TO THIS POINT. PT WOULD BENEFIT FROM SURGICAL DEBRIDEMENT OF ESCHAR. DR. ALBERT NOTIFIED AND HE WILL PLACE SURGICAL CONSULT. WOUND CULTURE OBTAINED.
[2022-12-07 15:56] VITALS: BP 116/69
[2022-12-07 20:01] VITALS: BP 135/83
--- NOTE | 2022-12-07 20:20 | NUR ---
SHIFT SUMMARY- PT PAIN HAS BEEN MUCH MORE MANAGED WITH THE AIR BED AND LARGER DOSE OF OXY TODAY. HE HAS BEEN SLEEPING A LOT TODAY, AND A LITTLE CONFUSED WHEN HE WAKES. AT SHIFT CHANGE HE STARTED YELLING OUT INTO THE GARCIA FOR HELP SAYING HE NEEDED TO HAVE A BM AND HE HAS BEEN WAITING SINCE 1PM. THIS RN WAS ASSITING HIM AT THE BEDSIDE AT THAT TIME AND PERFORMED A BED BATH AT THAT TIME. ROM WERE PERFORMED WELL. PT DENED ANY MORE NEEDS ON FURTHER ROUNDING WELL. OFFERED TO ASSIST THE PT TO THE BEDS PATEL (HE HAD THAT TWICE THIS SHIFT WITH NO RESULT) HE REFUSED STATING THAT DID NOT WORK AND HE NEEDED TO USE THE BSC. THE PT IS A LIFT PT AT THIS TIME AND CAN NOT BE ASSISTED THERE AT THIS TIME. PT WAS WILLING TO ATTEMPT TO GO IN ATTENDS HOWEVER THIS ATTEMPT FAILED WELL. CONTACTED THE ASSOCIATE VETERINARIAN AND SPOKE TO HER ABOUT TRANSFERING THE PT TO A LIFT ROOM. PT BED WAS CHANGED AT THE TIME OF BEDSIDE REPORT. DRESSING CHANGED TWICE D/T BEING SOILED ON THE LEFT HIP. PASSED ALL ON IN REPORT TO NIGHT RN. PT IN BED NO S&S OF DISTRESS NOTED SPOKE ABOUT PAIN MEDICATION, NIGHT RN AWARE PT WANTS PAIN MEDICATION AT THIS TIME.
[2022-12-08] VITALS (11 sets, daily range): BP systolic 113–137; BP diastolic 65–86
--- NOTE | 2022-12-08 05:07 | NUR ---
SHIFT SMMERY, PT RESTING IN BED AT THIS TIME PT NOW NPO. PT GIVEN A SNACK EALIER AND REPOSITIONED. PT ALSO MEDICATED FOR PAIN. PT ACIDENATALY REMOVED CONDOM CATH WHICH WAS REPLACED. PT CALL NG FREQUENTLY MOST OF THE NIGHT. CALL LIGHT IN REACH. BED ALARM ON.
[2022-12-08 05:54] LABS: Hemoglobin 12.9 g/dL (13.5-17.5); Mean Corpuscular HGB Conc 33.1 g/dL (31.5-36.5); Mean Corpuscular Volume 88 fL (80-100); Mean Platelet Volume 9.2 fL (9.1-12.4); Platelet Count 524 K/mm3 (150-400); RDW Coefficient Variation 12.9 % (11.7-14.2); RDW Standard Deviation 41.5 fL (35.1-46.3); Red Blood Cell Count 4.45 M/mm3 (4.30-5.90); White Blood Cell Count 10.62 K/mm3 (4.00-11.30)
[2022-12-08 06:18] LABS: Bun/Creatinine Ratio 44.5 (12.0-20.0); Calcium, Blood 8.8 mg/dL (8.5-10.1); Creatinine, Blood 0.63 mg/dL (0.60-1.20); Potassium, Blood 4.1 mmol/L (3.5-5.5)
--- NOTE | 2022-12-08 13:22 | NUR ---
MEDICATED FOR PAIN PER ORDERS. SPOKE WITH DR PLATT AND WAS OK TO GIVEN PO PAIN MED ORDERED PRIOR TO SURGERY.
--- NOTE | 2022-12-08 18:19 | NUR ---
SHIFT SUMMARY- PT WAS NPO THIS MORNING FOR PROCEDURE. HE WENT FOR AN I/D THIS AFTERNOON. RETURNED WITH WOUND VAC. VITALS HAVE BEEN STABLE. HIS BED IS IN THE LOW POSITON CALL LIGHT IS WITIN REACH.
--- NOTE | 2022-12-09 03:18 | NUR ---
SHIFT LINDA, AT BEGINING OF SHIFT TILL ABOUT 2100 PT HAD CALLED ABOUT 10-15 TIMES. TRYED TO EXSPLANE TO PT HE NEEDED TO TRY TO GOUP HIS NEEDS DUE TO OTHER PTS REQUIREING THE SAME THINGS PT ASKING FOR. PT WAS MEDICATED FOR PAIN PT VERY CROSS WHEN ASKED PAIN RATING , PT WANTED ROOT BEER TO DRINK AND IT WAS GOTTEN FOR PT, PT ASKED IF HE NEEDED SOMETHING ELSE TO EAT AND PT SAID HE ONLY WANTED A DRINK . PT SAID HE WAS COLD MORE WARM BLANKETS APPLYED TO PT. ASKED PT IF HE NEEDED ANYTHING ELSE PT DECLINED ANY OTHER NEEDS. WENT OUT OF ROOM AND PT CALLED ABOUT 5 MIN AFTER THAT. PT CALLING EVERY FEW MIN, THEN PT FELL ASLEEP TILL ABOUT 0245. PT WANTED FRESH ROOT BEER, TURKY SAND WITCH AND SOME CRACKERS. MEDICATED PT FOR PAIN AND ASSISTED PT WITH HIS SANDWITCHES CRACKERS AND DRINK. CALL LIGHT IN REACH BED ALARM ON.
[2022-12-09 05:31] VITALS: BP 129/66
[2022-12-09 07:22] VITALS: BP 127/66
[2022-12-09 17:19] VITALS: BP 127/70
--- NOTE | 2022-12-09 18:04 | NUR ---
SHIFT SUMMARY NO CLINICAL CHANGES TODAY. WOUND VAC TO L HIP/LOWER BUTTOCK REGION C/D/I. SXN FXNING WELL. BLOODY PURULENT APPEARING DRAININAGE NOTED IN CANISTER. BILAT HEEL PROTECTORS ON, PT ON AIR BED. CONDOM CATH IS WORKING WELL FOR PT. IS A&O X 4. VSS. PAIN MEDS GIVEN PER EMAR WITH GOOD EFFECT STATED BY PT. PT STRUGGLES WITH BEING ABLE TO HOLD OBJECTS IN HIS HANDS AND LIKELY NEEDS ASSISTANCE WITH EATING & FOODS THAT ARE EASY TO MANAGER STRATEGIC MARKETING. DINNER TONIGHT IS CHICKEN STRIPS & FRIES. PT STATES HE IS HAVING AN EASIER TIME EATING THESE. THIS AFTERNOON A JUSTIN FERREIRA VISITED, BEGAN STRONGLY REQUESTING PT MEDICAL INFO AND UPDATES & TO SEE PT'S CHART. PROVIDED DOCUMENTS THAT SHE STATED WERE FROM THE STATE AND THAT SHE IS AUTHORIZED TO RECEIVE PT'S MEDICAL INFO. DOCUMENTS WERE PLACED ON PT'S CHART. SHE WAS INFORMED THAT SHE COULD GO TO MEDICAL RECORDS ON MONDAY WHEN THEY OPENED, LONG PT SIGNED A CONSENT TO RELEASE MEDICAL INFOTO HER. SHE STATES SHE IS NOT PT'S POA OR GUARDIAN BUT THAT SHE IS A PT ADVOCATE FROM THE STATE.
[2022-12-09 19:49] VITALS: BP 134/75
--- NOTE | 2022-12-09 20:51 | NUR ---
PT RESTING IN BED, PT GIVEN HS MEDS AND PAIN MED. ASKED PT IF HE WANTED A SNACK AND PT SAID TO GET WHAT EVER BUT WANTED ROOT BEER NO ICE CUP HALF FILLED SO EASYER TO DRINK. BROUGHT PT HIS MEDS AND HAD CUT HALF SANDWITCHES IN 3 PIECES, OPENED CHEESE AND CRACKERS PLACED ON PLATE. MOVED TRAY TABLE TO PT HELPED PT EAT A FEW PIECES OF SANDWITCH AND A DRINK. STARTED GETTING OUT PTS MEDS. PT ACIDENTALY SPILLED ROOT BEER ON BED, CALLED MASTER BREWER TO GET NEW BEDDING AND WARM BLANKETS WHEN OTHER NURES CAME BACK IN FROM GETTING MEDS SO NOT TO LEAVE OTHER PTS THAT WERE CONFUSED UN ATTENDED. GAVE PT HIS MEDS WITH WATER. MASTER BREWER AND THIS NURSE CHANGED ALL PT BEDDING CLEANED PT WITH WIPES. REPOSITIONED PT TRYED TO PLACE PILLOWS BETWEEN PTS LEGS TO PREVENT SKIN BREAKDOWN BUT PT DECLINED AND ONLY WOULD HAVE A TOWEL. TOLD PT PILLOW WOULD BE BETTER BECOUSE IT IS THICKER. PT STILL NOT WANTING PILLOW ONLY TOWEL. PT WANTED CONDOM CATH CHECKED ANS IT WAS IN PLACE MOVED TUBE UP SO NOT BEING PRESSED BETWEEN LEGS. TOLD PT IT WAS NOT GOOD TO HAVE THE PRESUER OF TUBE BEING PUSHED ON TO LEGS WOULD CAUSE BREAKDOWN. PT HAD A CATH SECURE BUT DUE TO THE TUBE NOT BEING A NORMAL CATH WITH A Y SPLIT IT WOULD NOT CLAMP TUBE, SO REMOVED CATH SECURE AND EXSPLANED TO PT WHAT THE PROBLEM WAS. COVERED PT UP LEFT HIS ARMS OUT SO HE COULD USE HIS HANDS AND ARMS. PLACED CALL LIGHT SO PT COULD REACH AND USE LIGHT. TURNED LIGHTS SO PT COULD TURN OFF AND ON AND PT SAID HE WOULD TURN THEM OFF WHEN HE WAS READY. T CALLED A FEW MIN LATTER TO USE BED PATEL PT HAS CALL LIGHT IN REACH AND STATED HE WOULD CALL WHEN HE WAS READY.
[2022-12-10 07:25] VITALS: BP 108/67
--- NOTE | 2022-12-10 07:32 | NUR ---
SHIFT SUMMERY. PT GIVEN SNACK BEFORE BED ADN REPOSITONED MULTIPLE TIMES, MEDICATED FOR PAIN. FOUND A MUG PT COULD MORE EASILY USE HIMSELF. PT ALLOWED US TO PLACE PILLOW FOR COMFORT AND PEVENTION. THER INSPECTOR AND SORTER CAME IN TO HELP WITH BED SETTINGS TO ROTATE PT EVERY 15 MIN. PT FELL ASLEEP ABOUT 0200 AND THEN WAS ABLE TO SLEEP TO A LIOTTLE PAST 0600. PT WAS MEDICATED AT ABOUT 0625 FOR PAIN. GIVEN A SNACK. PTS CHECKED TO SEE IF HE HAD A BM NO RESULTS. PT HAD TRIED X2 ON BED PATEL, PT TAKING BC MEDS BUT NO RESULTS. CALL LIGHT IN REACH OF PT , PTS PHONE IN REACH . PT BACK TO SLEEP.
[2022-12-10 08:46] LABS: Hematocrit 34.1 % (37.0-53.0); Hemoglobin 11.5 g/dL (13.5-17.5); Mean Corpuscular HGB 29.7 pg (26.0-34.0); Mean Corpuscular HGB Conc 33.7 g/dL (31.5-36.5); Mean Corpuscular Volume 88 fL (80-100); Mean Platelet Volume 9.1 fL (9.1-12.4); Platelet Count 476 K/mm3 (150-400); RDW Coefficient Variation 12.9 % (11.7-14.2); RDW Standard Deviation 41.8 fL (35.1-46.3); Red Blood Cell Count 3.87 M/mm3 (4.30-5.90); White Blood Cell Count 7.43 K/mm3 (4.00-11.30)
[2022-12-10 09:11] LABS: Calcium, Blood 8.8 mg/dL (8.5-10.1); Creatinine, Blood 0.56 mg/dL (0.60-1.20)
[2022-12-10 14:07] LABS: Percent Saturation 15.6 % (20.0-50.0)
[2022-12-10 14:20] VITALS: BP 112/72
--- NOTE | 2022-12-10 17:30 | NUR ---
SHIFT SUMMARY PATIENT CALLING MULTIPLE TIMES FOR MINOR THINGS WHICH PATIENT CAN DO HIMSELF. C/O ABDOMINAL PAIN, GIVEN MIRALAX AND BROWN COW IT HAS BEEN SOME TIME SINCE LAST BM. WOUND VAC IN PLACE, PULLING RED DRAINAGE, SHOULDER DRESSING INTACT. DOC OKAYED INCEASE TO FLEXERIL DOSE THIS SHIFT, TOLERATING WELL. WILL CONTINUE TO MONITOR
[2022-12-11 04:47] LABS: Hematocrit 35.2 % (37.0-53.0); Hemoglobin 11.6 g/dL (13.5-17.5); Mean Corpuscular Volume 88 fL (80-100); Platelet Count 523 K/mm3 (150-400); RDW Coefficient Variation 12.7 % (11.7-14.2); RDW Standard Deviation 41.4 fL (35.1-46.3)
--- NOTE | 2022-12-11 04:53 | NUR ---
SHIFT SUMMARY: C/O 12/20 PAIN IN BLE AND L HIP WOUND; MEDICATED PER EMAR. HAD LARGE BM AFTER ONE TIME SUPPOSITORY GIVEN. SLEPT FOR SEVERAL HOURS. WOUND VAC DRESSING INTACT, NO LEAK NOTED; MODERATE SEROSANG DRAINAGE. WILL NOT DRINK ANYTHING BUT ROOT BEER. IS VERBALLY ABUSIVE TO STAFF, CRIES OUT FOR HIS NEEDS RATHER THAN USING CALL LIGHT. STATED HE COULD NOT USE HIS RUE TO RAISE AND LOWER THE HOB, BUT WAS INFORMED BY THIS AUTHOR THAT HE HAS BEEN OBSERVED USING HIS ARM BETTER THAN BEFORE, SO HE WAS MADE TO DO THIS FOR HIMSELF, WHICH HE DID.
[2022-12-11 05:08] LABS: Bun/Creatinine Ratio 47.6 (12.0-20.0); Calcium, Blood 8.8 mg/dL (8.5-10.1); Creatinine, Blood 0.53 mg/dL (0.60-1.20); Potassium, Blood 4.1 mmol/L (3.5-5.5)
[2022-12-11 06:35] VITALS: BP 135/79
[2022-12-11 07:31] VITALS: BP 117/74
[2022-12-11 15:18] VITALS: BP 140/104
--- NOTE | 2022-12-11 17:13 | NUR ---
SHIFT SUMMARY WOUND VAC IN PLACE, RUNNING 120MMHG, DRESSING IN PLACE TO LEFT GREAT TOE. C/O PAIN THIS SHIFT, TOLERATING OXY AND FLEXERIL WITH APAP WELL. ENCOURAGING PATIENT TO BE INDEPENDENT POSSIBLE WITH BED MOBILITY AND ADLS. TOLERATING ABX WELL. WILL CONTINUE TO MONITOR
[2022-12-11 19:31] VITALS: BP 130/84
[2022-12-12 04:31] VITALS: BP 122/72
--- NOTE | 2022-12-12 05:25 | NUR ---
Rn summary: Patient is painful with muscle spasms. Patient medicated with oxy 10mg and flexeril 10mg at 2150. Patient never really went to sleep until 0445 this am after repeat oxy 10mg and applesauce. Patient unable to eat a lot of the finger food diet he is ordered due to having no teeth. Patient states he is willing to try a mechanical soft diet. Patient did have increasing muscle spasms around 0300 am. Pt is not able to request how he wants to be repositioned. Pt does become loud and aggitated although nursing staff attempts to reposition him in several different positions. Patient has wound vac to left hip that is draining some serrousanguinous fluid. It is due to be changed today. Condom cath remains intact and patent. Pt did c/o hands burning, and shoulder tightness that improved with distraction and repositioning. Patient is on and air bed. Heal protectors on. Call light in reach. Bed in lowest position.
[2022-12-12 07:48] VITALS: BP 111/77
--- NOTE | 2022-12-12 17:09 | NUR ---
WOUND CARE L HIP WOUND VAC DRESSING CHANGED. TWO PIECES BLACK FOAM REMOVED. WOUND CLEANSED WITH NS, DRAPPED WITH TRANSPARENT FILM. TWO PIECES OF BLACK FOAM THEN REAPPLIED. VAC SET TO CONTINUOUS 120MMGH. L FOOT WOUND CLEANSED WITH NS. PRIMARY DRESSING CHANGED TO HYDROCOLLOID. PT TOLERATED WELL
--- NOTE | 2022-12-12 17:35 | NUR ---
SUMMARY- PAIN WELL CONTROLLED W/PAIN MEDS ON EMAR. X2 ASSIST IN BED. AAOX4. PT IRRITABLE THIS AM, BUT MUCH MORE COOPERATIVE AND HAPPY AFTER HIS BROTHER AND A VISITOR VISITED HIM. ALL DRESSINGS CHANGED TODAY DURING DAY SHIFT 12/12/22.
[2022-12-12 20:38] VITALS: BP 129/75
--- NOTE | 2022-12-12 22:48 | NUR ---
PT A&OX4 FORGETS LIMITATIONS. PT HAS PHYSICAL IMPAIRMENT W CONTRACTURES TO UPPER AND LOWER EXTREMITIES WHEELCHAIR AT BASELINE. LUNGS CLEAR T/O HR 84. BS ARE ACTIVE WITH LARGE BM FIRM SOLID,PT WAS REPOSTIONED HAS CONDOM CATH IN PLACE R/T POLYURIA. L SHOULDER HEALING, L HIP WOUND VAC IN PLACE, L FOOT MEPLEX DRESSING C/D/I,L GREAT TOE ECC/SCABBING. CALL WATKINS IN REACH CALLS APPROPERIATELY BED LOWERED HOB ELEVATED WITH PILLOWS BETWEEN KNEES. WILL CONTINUE TO MONITOR.
--- NOTE | 2022-12-13 04:01 | NUR ---
CERAMIC COATER MACHINE SUMMARY VSS. CONDOM CATH DRAINING. PAIN MEDS AND MUSCLE RELAXANT ADMINISTERED ORDERED - SEE MAR FOR DETAILS. REPOSITIONED INTERMITTNTLY - 2 PERSON ASSIST. DRESSINGS CDI, WOUND VAC OF LEFT HIP IN USE. HAS BEEN RESTING INTERMITENTLY THROUGH OU SHIFT. OCCAIONALLY CALLING OUT FOR PAIN MEDS. CURRENLY RESTING QUIETLY WITH CALL LIGHT IN REACH. ISOLATION PREACAUTIONS MAINTAINED FOR MRSA. WILL CONTINUE TO MONITOR
[2022-12-13 05:07] VITALS: BP 135/64
[2022-12-13 08:04] VITALS: BP 134/80
--- NOTE | 2022-12-13 17:21 | NUR ---
SUMMARY- RN REMOVED CONDOM CATHETER THIS SHIFT DUE TO SKIN BREAKDOWN IN THREE PLACES ON PT'S PENIS. PT HAS BEEN CONTINENT OF URINE SINCE REMOVAL OF CONDOM CATH. PT OOB ONCE TODAY W/MAURIZIO LIFT AND PLACED IN HIS NEW WC FOR TWO HOURS. PT X2 ASSIST. AAOX4. CALM AND COOPERATIVE THIS SHIFT.
[2022-12-13 20:34] VITALS: BP 135/80
[2022-12-13 23:45] VITALS: BP 138/77
--- NOTE | 2022-12-13 23:46 | NUR ---
PT C/O SEVERE PAIN OF LEFT HIP. NOTED EARLIER REDDENED AREA LARGER, MARKED WITH INK. NOTE C/O CHILLS BUT PT HOT AND SWEATY. WARM BLANKETS APPLIED. MD NOTIFIED. ORDERS FOR STAT CBC, 1 L NS AND VS. TO MONITOR IF BP DROPPING, HR INCREASING AND S/S OF POSSIBLE SEPSIS.
[2022-12-14 00:17] LABS: BASOPHILS ABSOLUTE AUTO 0.11 K/mm3 (0.00-0.23); BASOPHILS PERCENT AUTO 1 % (0-2); EOSINOPHILS ABSOLUTE AUTO 0.47 K/mm3 (0.00-0.68); EOSINOPHILS PERCENT AUTO 6 % (0-6); Hematocrit 37.6 % (37.0-53.0); Hemoglobin 12.7 g/dL (13.5-17.5); IMMATURE GRAN ABSOLUTE AUTO 0.03 K/mm3 (0.00-0.10); IMMATURE GRAN PERCENT AUTO 0 % (0-1); LYMPHOCYTES ABSOLUTE AUTO 2.12 K/mm3 (0.84-5.20); LYMPHOCYTES PERCENT AUTO 26 % (21-46); MONOCYTES PERCENT AUTO 9 % (4-13); Mean Corpuscular HGB 29.3 pg (26.0-34.0); Mean Corpuscular HGB Conc 33.8 g/dL (31.5-36.5); Mean Corpuscular Volume 87 fL (80-100); Mean Platelet Volume 8.8 fL (9.1-12.4); NEUTROPHILS ABSOLUTE AUTO 4.72 K/mm3 (1.96-9.15); NEUTROPHILS PERCENT AUTO 58 % (41-73); Platelet Count 598 K/mm3 (150-400); RDW Coefficient Variation 12.6 % (11.7-14.2); RDW Standard Deviation 40.6 fL (35.1-46.3); Red Blood Cell Count 4.33 M/mm3 (4.30-5.90); White Blood Cell Count 8.15 K/mm3 (4.00-11.30)
--- NOTE | 2022-12-14 00:18 | NUR ---
DISCUSSED RATIONALE RE STARTING IVF AND CBC DRAWN WITH PT. DISCUSSED RULING OUT S/S SEPSIS, AND INTERMITENT VS TO ADDRESS IT. VOICED APPRECIATION OF SAID INFORMATION AND SEEMED TO CALM DOWN. SMILING INSTEAD OF YELLING. CALL LIGHT IN REACH. IVF INFUSING. WILL CONTINUE TO MONITOR
[2022-12-14 02:34] VITALS: BP 137/80
--- NOTE | 2022-12-14 03:47 | NUR ---
GENERAL OPERATIONS MANAGER SUMMARY VSS. WOUND VAC CONTINUES TO DRAIN FROM LEFT HIP. NOTED APPARENT INCREASE OF REDNESS OF LEFT HIP, SOME SWEATING BUT SKIN COOL TO TOUCH. VOICED INCREASE OF PAIN OF AREA WELL. MD NOTIFIED AND RECEIVED ONE DOSE OF IV FENTANYL, MED EFFECTIVE. THEN LATER PAIN AND SWEATING INCREASED. MD NOTIFIED, STAT CBC ORDERED/OBTAINED. IVF OF NS X 1000 ML ORDERED AND INITIATED. DISCUSSED R/O SEPSIS WITH PT. PT VOICED ACCEPTANCE AND AFER TOLERATING FOOD, SEEMED TO CALM DOWN. AWAKE AT INTERVALS, BUT NOT SCREAMING. MORE RECEPTIVE. INCONT OF FECES X 1, CLEANED. REPOSITIONED INTERMITTENTLY. ISOLATION PRECAUTIONS MAINTAINED. CALL LIGHT IN REACH. WILL CONTINUE TO MONITOR. LAB RESULTS AND VITAL SIGNS APPEAR TO R/O SEPSIS AT THIS TIME.
[2022-12-14 07:22] VITALS: BP 127/68
[2022-12-14 15:42] VITALS: BP 138/86
--- NOTE | 2022-12-14 17:16 | NUR ---
SHIFT SUMMARY PATIENT CONTINUES TO HAVE PAIN ESPECIALLY OVER L HIP AREA. PATIENT YELLS OUT AT TIMES AND WITH ANY POSITION CHANGES. LOWER EXTREMETIES CONTRACTED AND DIFFICULT TO PERFORM JUNITO CARE. PATIENT STATES HE IS GOING TO WALK AGAIN BUT HAS BEEN IN A WHEELCHAIR FOR 5 YEARS. HE IS HOPING TO GET HIS HIPS REPLACED SOON. MOST OF WOUNDS HEALED. WOUND VAC TO L HIP. WOUND CARE PROVIDED BY [facility] FROM WOUND CLINIC. MEDICATED FOR PAIN PER MAY. 1 TIME ADDITIONAL DOSE OF FENTANYL GIVEN FOR UNCONTROLLED PAIN.
--- NOTE | 2022-12-14 17:26 | NUR ---
WOUND CARE WOUND VAC DRESSING CHANGED PER ORDER. NEW PHOTO AND ASSESSMENT IN HARD CHART. WOUND IS SHOWING IMPROVEMENT. NO S/S INFECTION NOTED BY THIS RN. WOUND MARGINS DECREASED. TWO PIECES OF BLACK FOAM REMOVED, WOUND CLEANSED WITH NS. SKIN PREP TO PERIWOUND THE WINDOWPANED WITH TRANSPARENT FILM. TWO PIECES BLACK FOAM REAPPLIED. VAC SET TO CONTINUOUS 120MMH. PT TOLERATED WELL
[2022-12-14 20:17] VITALS: BP 122/72
[2022-12-15 02:48] VITALS: BP 135/79
--- NOTE | 2022-12-15 03:20 | NUR ---
DOCTOR PIERSON CALLED; CALLED DOCTOR PIERSON FOR PT REPORTING UNRELIEVED PAIN WITH PRN MEDICATIONS, DOCTOR PIERSON ORDERED FENTANYL-SEE EMAR OR ORDERS.
--- NOTE | 2022-12-15 04:44 | NUR ---
SHIFT SUMMARY PT ALERT AND ORIENTED. PAIN ASSESSED AND MEDICATED PER EMAR-PT REPORTS THAT PAIN IS STILL ELEVATED AFTER PRN MEDS GIVEN. PT REPORTING THE PAIN FROM BOTH HIPS, KNEES AND LEFT SHOULDER HAS BEEN REALLY BOTHERING HIM. PT DENIES CHEST PAIN/PRESSURE/TIGHTNESS. WOUNDVAC IS IN PLACE AND DRAINING. PT HAS USED THE URINAL T/O NIGHT AND CALLS TO HAVE IT DUMPED. PT IS ABLE TO MAKE HIS NEEDS KNOWN. BED IS LOCKED IN THE LOWEST POSITION WITH CALL LIGHT IN REACH. NO S/S OF DISTRESS NOTED AT THIS TIME.
[2022-12-15 08:05] VITALS: BP 134/89
[2022-12-15 15:53] VITALS: BP 135/85
--- NOTE | 2022-12-15 19:32 | NUR ---
SHIFT SUMMERY: PT WAS ALERT AND ABLE TO AMKE NEEDS KNOWN. STATED HE WAS PAINFUL THROUGH OUT THE SHIFT. WAS GIVEN PRN OXY X2, FENT X1, AND FELXERIL X1. ON ROUND CHECKS PT WASS SLEEPING. WOUND VAC WAS CLEAN DRY AND INTACT.
[2022-12-15 23:57] VITALS: BP 115/68
[2022-12-16 05:20] VITALS: BP 129/69
--- NOTE | 2022-12-16 06:03 | NUR ---
SHIFT SUMMARY PT IS ALERT AND ORIENTED TO PERSON/SELF, PLACE, SITUATION, AND TIME. PT DENIES CHEST PAIN/PRESSURE/TIGHTNESS. PT C/O PAIN IN HIPS AND WOUND; PAIN ASSESSED AND MEDICATED PER EMAR; PTS PAIN MORE INTENSE TONIGHT. PT REQUESTING LOTS OF SNACKS T/O NIGHT. PT IS PLEASANT AND COOPERATIVE WITH CARE. PT UP MOST OF SHIFT WATCHING TV. NO S/S OF DISTRESS NOTED AT THIS TIME.
[2022-12-16 07:45] VITALS: BP 115/74
[2022-12-16 15:57] VITALS: BP 124/85
--- NOTE | 2022-12-16 19:10 | NUR ---
SHIFT SUMMARY: PT IS ADMITTED FOR LEFT LEG CELLULITIS. HE IS ALERT AND ABLE TO MAKE NEEDS KNOWN. HAS STATED VARYING LEVELS OF PAIN THROUGH THE DAY AND HAS BEEN MANAGED WITH PRN OXY X1, FLEXERIL X1 AND FENTANYL X1. WOUND CARE NURSE WAS IN TODAY AND CHANGED WOUND VAC TO LEFT HIP. NEW ORDERS TO DC LEVAQUIN. HE WAS OFFERED A COUPLE TIMES TODAY BY STAFF TO GET INTO WHEELCHAIR AND HE DECLINED.
[2022-12-16 20:03] VITALS: BP 127/75
[2022-12-17 02:52] VITALS: BP 121/72
--- NOTE | 2022-12-17 05:40 | NUR ---
SHIFT SUMMARY 62 YR M ADMITTED ON 11/29/22 FOR LLE CELLULITIS. FULL CODE. NO ACUTE CHANGES THIS SHIFT. PT HAS BEEN PLEASANT AND COOPERATIVE THIS SHIFT. HE C/O PAIN IN HIS LEFT HIP AND REQUESTS PAIN MEDS OFTEN. HE ALSO CALLS FOR SNACKS FREQUENTLY THROUGHOUT THE NIGHT. HE WILL YELL OUT FOR FOOD AND ONLY USES THE CALL LIGHT IF HE IS NOT ANSWERED PROMPTLY. HE ASKS TO BE REPOSITIONED WHEN HE IS UNCOMFORTABLE, BUT ONLY ONCE THIS SHIFT.
[2022-12-17 07:45] VITALS: BP 123/74
[2022-12-17 14:59] VITALS: BP 115/71
--- NOTE | 2022-12-17 19:02 | NUR ---
DAY SHIFT SUMMARY: A&Ox4. COOPERATIVE WITH CARE. EMOTIONALLY LABILE HE REPORTS IS RELATED TO PAIN. ADMINISTERED OXYCODONE AND FENTANYL FREQUENTLY WITHOUT MUCH RELIEF. CHANGED TO NORCO AND PO DILAUDID PER DR MADRID. CONSUMED 100% OF ALL MEALS. VOIDING WITHOUT DIFFICULTY. NO STOOL NOTED. REPORT TO ONCOMING RN.
[2022-12-17 21:21] VITALS: BP 119/66
[2022-12-18 02:49] VITALS: BP 116/72
--- NOTE | 2022-12-18 04:27 | NUR ---
SHIFT SUMMARY 62 YR M ADMITTED ON 11/29/22 FOR LLE CELLULITIS. FULL CODE. NO ACUTE CHANGES THIS SHIFT. PT STILL C/O PAIN AT 9/10 AND IS UNABLE TO ADJUST HIMSELF IN BED FOR COMFORT. HE IS DEMANDING WITH STAFF AND IS HEAVY ON THE CALL LIGHT. HE HAS A SMALL BM ON THE BEDPAN THIS SHIFT. HIS PAIN DOES NOT APPEAR TO BE WELL CONTROLLED AND HE YELLS OUT FREQUENTLY. IV IS PATENT AND FLUSHES WELL. CALL LIGHT IS WITHIN REACH.
[2022-12-18 05:30] LABS: BASOPHILS ABSOLUTE AUTO 0.14 K/mm3 (0.00-0.23); BASOPHILS PERCENT AUTO 2 % (0-2); EOSINOPHILS ABSOLUTE AUTO 0.47 K/mm3 (0.00-0.68); EOSINOPHILS PERCENT AUTO 6 % (0-6); Hematocrit 35.8 % (37.0-53.0); IMMATURE GRAN ABSOLUTE AUTO 0.03 K/mm3 (0.00-0.10); IMMATURE GRAN PERCENT AUTO 0 % (0-1); LYMPHOCYTES ABSOLUTE AUTO 1.61 K/mm3 (0.84-5.20); LYMPHOCYTES PERCENT AUTO 19 % (21-46); MONOCYTES ABSOLUTE AUTO 0.65 K/mm3 (0.16-1.47); MONOCYTES PERCENT AUTO 8 % (4-13); Mean Corpuscular HGB 29.6 pg (26.0-34.0); Mean Corpuscular HGB Conc 33.5 g/dL (31.5-36.5); Mean Corpuscular Volume 88 fL (80-100); Mean Platelet Volume 9.3 fL (9.1-12.4); NEUTROPHILS ABSOLUTE AUTO 5.68 K/mm3 (1.96-9.15); NEUTROPHILS PERCENT AUTO 66 % (41-73); Platelet Count 495 K/mm3 (150-400); RDW Coefficient Variation 12.8 % (11.7-14.2); RDW Standard Deviation 41.6 fL (35.1-46.3); Red Blood Cell Count 4.06 M/mm3 (4.30-5.90); White Blood Cell Count 8.58 K/mm3 (4.00-11.30)
[2022-12-18 06:13] LABS: Albumin, Blood 2.8 g/dL (3.4-5.0); Albumin/Globulin Ratio 0.7 (0.8-1.8); Bilirubin, Total 0.7 mg/dL (0.1-1.0); Creatinine, Blood 0.68 mg/dL (0.60-1.20); Globulin, Blood 3.8 g/dL (2.2-4.0); Potassium, Blood 4.2 mmol/L (3.5-5.5); Total Protein, Blood 6.6 g/dL (6.4-8.2)
[2022-12-18 07:30] VITALS: BP 106/74
[2022-12-18 14:46] VITALS: BP 158/85
--- NOTE | 2022-12-18 18:29 | NUR ---
SUMMARY- PT A/O X4- USES CALL LIGHT TO MAKE NEEDS KNOWN. BEDREST WITH LE CONTRACTURES. WOUND VAC ON L HIP CHANGED AT 1600 BECAUSE IT WAS LEAKING THROUGH THE SUPERIOR PORTION. REPLACED WITH AN EXUDERM OVER THE LATERAL OPEN AREA. SET AT CONT SUCTION 120MMHG. PAIN IN HIP CONTROLLED WITH NORCO AND DILAUDID ALTERNATING. PT HAD A XL SOFT BM TODAY. TOLERATING FOOD AND FLUIDS. WILL REPORT TO NOC RN
--- NOTE | 2022-12-18 18:42 | NUR ---
WOUND VAC DRESSING CHANGED TODAY 12/18 AT 1530 RELATED TO LEAKING ABOVE THE LATERAL PORTION WERE SKIN IS ULCERATED AND SATRUATED, BEGAN TO LEAK. CLEANSED WITH NS- SKIN PREP TO SURR INTACT SKIN, EXUDRY TO OPEN AREA SURROUNDING WOUND. SET TO 120MMHG CONT SUCTION. LAST CANISTER HAD 250-300ML OF SS EXUDATED NOTED.
--- NOTE | 2022-12-18 19:57 | NUR ---
BEDSIDE REPORT FROM OLGA RN- REPORT THAT PT IS A&OX4 - PT SCREAMING OUT DURING REPORT- PT REPORTED PAIN AND THAT IS WHY HE IS SCREAMING- PULLED HS MEDS ALONG WITH PAIN MEDICATION- PT SCREAMING- PT REFUSED TO ANSWER ANY QUESTIONS- PT CONTINUED TO MOAN AND SCREAM- REQUESTED MULTIPLE TIMES FOR HIS - HE CONTINUED TO MOAN AND SCREAM- PT REFUSES TO ANSWER- NOTIFIED PT THAT I CAN'T GIVE HIME ANY OF HIS MEDICATIONS WITHOUT VERIFYING WHO HE IS- THE PT YELLED AT THIS RN, "GET THE FUCK OUT OF MY ROOM, YOU KNOW WHO THE FUCK I AM, YOU ARE A FUCKING SADIST"- ATTEMPTED TO NOTIFY PT OF NEEDING TO VERIFY EVERYTIME WITH MEDICATIONS WHO HE IS AND CONTINUED TO YELL AT ME TO GET THE FUCK OUT OF HIS ROOM.
[2022-12-18 23:15] LABS: U Amphetamine Screen Not Detected; U Barbituate Screen Not Detected; U Benzodiazapine Screen Not Detected; U Buprenorphine Screen Not Detected; U Cannabinoids Screen DETECTED; U Cocaine Screen Not Detected; U Methadone Screen Not Detected; U Methamphetamine Screen Not Detected; U Opiates Screen DETECTED; U Oxycodone Screen DETECTED; U Phencyclidine Screen Not Detected; U Propoxyphene Screen Not Detected
[2022-12-19 03:15] VITALS: BP 118/71
--- NOTE | 2022-12-19 06:35 | NUR ---
SHIFT SUMMARY PT MEDICATED T/O NIGHT WITH NORCO AND DILAUDID, PT REQUESTS PAIN MEDICATION OFTEN- PT REPORT TINNITUS - PER PT WHEN PAIN IS OUT OF CONTROL THE TINNITUS INCREASES, PT REQUESTED SNACK T/O NIGHT- PT REQUESTS PAIN MEDICATION EVERY 2 HOURS FOR LEFT HIP PAIN- WOUND VAC IN PLACE- BED LOW POSITION, CALL LIGHT WITH REACH
[2022-12-19 07:49] VITALS: BP 140/79
[2022-12-19 15:48] VITALS: BP 116/62
--- NOTE | 2022-12-19 16:59 | NUR ---
SHIFT NOTE PT AWAKE AND ALERT. COOPERTIVE AND PATIENT WITH CARE. ABLE TO TURN SELF SIDE TO SIDE. SUPPORTED WITH PILLOWS. LEFT HIP WITH WOUND VAC AT 120 MMHG. SCANT DRAINAGE. WOUND CARE NURSE CHANGED DRESSING AND TOOK PICTURES TODAY. PT ENCOURAGED TO WORK HIS HANDS. HE USED THE P[employer] FOR HAND EXERCISES. WHEN TURNING HIS HIPS AND KNEES [place], GRIND AND POP. TAKES TWO PEOPLE TO DO JUNITO CARE D/T NEEDING TO PUSH HIS KNEES APART. MEDICATED FOR PAIN PER EMAR. HIPS FLOATED WITH PILLOWS. PINK FOAM HEEL PROTECTORS ON. PT ABLE TO USE URINAL. URINE DARK, ASHLIE. GOOD APPETITE. BED LOW AND LOCKED. CALL LIGTH WITH IN REACH. CARE ON GOING. CONTINUE POC.
[2022-12-19 19:52] VITALS: BP 107/66
[2022-12-20 02:43] VITALS: BP 125/74
--- NOTE | 2022-12-20 06:29 | NUR ---
SHIFT SUMMARY BEDSIDE REPORT FROM DINO RN- PT ASLEEP IN ROOM AT TIME- PT TOOK SCHEDULED HS MEDS, PT REFUSED NAPROXEN AND REPORTED IT CAN UPSET HIS STOMACH- PT REQUESTED SNACK- PT USED URINAL AND REQUESTED BEDPAN - PT HAD NO SUCCESS IN BEDPAN AND REQUESTED TO SLIDE TO WC AND TO TOILET- NOTIFIED PT THAT HE HASN'T TRANSFERRED FROM BED TO CHAIR TO TOILET, AND FIRST HE WILL HAVE TO WORK WITH PHY THERAPY- PT AGREED- BED LOW POSITION, CALL LIGHT WITHIN REACH
[2022-12-20 07:46] VITALS: BP 122/70
[2022-12-20 15:49] VITALS: BP 114/74
--- NOTE | 2022-12-20 18:20 | NUR ---
NOTE MEDICATED FOR PAIN PER EMAR. WOUND VAC TO LEFT HIP INTACT. SMALL AMOUNT OF BLOODY DRAINAGE NOTED IN TUBING. WOUND VAC INTACT 120 MMHG. PT WAS ABLE TO DANGLE WITH THERAPY. HE EXPERIENCED MUSCLE SPASMS IN HIS LEGS AFTER. REPOSTIONED FOR COMFORT AND SUPPORTED WITH PILLOWS. VSS. EATING AND DRINKING WELL. HE IS USING BUILT UP SILVER CISNEROS TO ASSIST WITH SELF CARE. BED LOWLOCKED. CALL LIGHT WITH IN REACH. CONTINUE POC.
[2022-12-20 19:52] VITALS: BP 138/77
[2022-12-21 04:25] VITALS: BP 116/71
--- NOTE | 2022-12-21 05:53 | NUR ---
SHIFT SUMMARY BEDSIDE REPORT FROM DINO RN- PT LAYING IN BED MOANING - PT REPORTED PAIN AND REQUESTED PAIN MEDICATION AND MUSCLE RELAXER-GAVE NORCO AND FLEXERIL WITH HS MEDS - PT TOLERATED WELL, FULL BED BATH DONE, LINEN CHANGE DONE, WOUND VAC SUCTIONING AT 120 MMHG- PT GOT FLEXERIL X2 AND PAIN MEDICATION T/O NIGHT- PT ON SPECIALITY BED, BED LOW POSITION, CALL LIGHT WITHIN REACH
[2022-12-21 07:47] VITALS: BP 133/76
--- NOTE | 2022-12-21 14:03 | NUR ---
WOUND CARE LLE WOUND VAC DRESSING CHANGED PER ORDER. NOTED INCREASED SANGUINEOUS DRAINAGE. PRIMARY RN ANDREA REPORTS PT RECENTLY STARTED ON BLOOD THINNER. WILL NEED TO MONITOR VAC OUTPUT. THREE PIECES OF BLACK FOAM REMOVED, WOUND CLEANSED WITH NS, SKIN PREP AND HYDROCOLLOID PLACED TO PERIWOUND BREAKDOWN, WOUND WINDOWPANED WITH TRANSPARENT FILM. TWO PIECES OF BLACK FOAM REAPPLIED. VAC SET TO CONTINUOUS 120MMHG. PT TOLERATED WELL
[2022-12-21 16:03] VITALS: BP 128/70
--- NOTE | 2022-12-21 17:51 | NUR ---
SHIFT SUMMARY PT MOANING AND COMPLAINING ABOUT PAIN THROUGHOUT THE DAY, RECEIVING FREQUENT PRN PAIN MEDS AND REPOSITIONED MULTIPLE TIMES TO EASE DISCOMFORT WITH LITTLE TO NO EFFECT ACCORDING TO PT. WOUND VAC DRESSING AND R HIP DRESSING CHANGED TODAY.
[2022-12-21 19:52] VITALS: BP 122/71
[2022-12-22 02:32] VITALS: BP 114/76
--- NOTE | 2022-12-22 04:20 | NUR ---
END OF SHIFT SUMMARY PT A&O x4, VSS, AFEBRILE. PT COMPLIANT AND COOPERATIVE WITH CARE PROVIDED. PT ABLE TO MAKE NEEDS KNOWN. PT DIDN'T SLEEP MUCH ON NOC SHIFT. PT CALLED FREQUENTLY FOR PAIN MEDICATION. PAIN MANAGED WITH PRN SCHEDULED NORCO, PRN DILAUDID x2, AND PRN APAP. PT EDUCATION REGARDING NON-PHARMACOLOGICAL METHODS TO USE TO CONTROL PAIN WAS DISCUSSED. PT HAS A HEATING PAD AT BEDSIDE. PT BECAME TEARFUL, HE WAS FRUSTRATED THAT THE DOCTOR HAS DECREASED DILAUDID DOSE. ACTIVE LISTENING AND THERAPEUTIC COMMUNICATION USED. PT USED THE BEDPAN, HAD A BOWEL MOVEMENT. PT CONTINENT OF B/B. WOUND VAC RUNNING AT 120mmHG, SANGUINEOUS DRAINAGE PRESENT IN CONTAINER. WOUND CARE SAW PT YESTERDAY. CALL LIGHT WITHIN REACH, WCTM.
[2022-12-22 07:08] VITALS: BP 113/72
--- NOTE | 2022-12-22 13:19 | NUR ---
PT GOTTEN UP IN RECLINER CHAIR VIA LIFT. MOVED TO ROOM 345 FOR CEILING LIFT ABILITIES. ATE LUNCH WITH SET UP. DEMANDED TO GO TO BED JUST AT LUNCH ARRIVED AND EXPLAINED TO PT HE WOULD BE PLACED BACK IN BED AFTER LUNCH WAS CONSUMED BY EARTH MOVING MACHINE OPERATOR. PT CALLED EARTH MOVING MACHINE OPERATOR AN ASSHOLE AND WHEN EARTH MOVING MACHINE OPERATOR ASKED IF HE WANTED HELP HE SAID HE COULD TAKE CARE OF FEEDING HIMSELF. MORE CALM LATER WHEN RN IN ROOM. REMINDED PT NAME CALLING WASN'T ACCEPTABLE. LIFTED BACK TO BED AND PT POSITIONED FOR COMFORT. DRESSINGS ALL INTACT AND WOUND VAC OPERATING PREPERLY.
--- NOTE | 2022-12-22 18:08 | NUR ---
SHIFT SUMMARY PT SLEPT FOR SEVERAL HOURS THIS AFTERNOON AND WOKE UP FUZZY AND NOT KNOWING WHERE HE WAS. KEPT SAYING "I NEED TO GET OUT OF HERE" ATTEMPTED TO GET MORE INFORMATION FROM PT ABOUT WHAT HE THOUGHT HE NEEDED TO DO AND WHERE TO GO AND HE RESPONDED HE DIDN'T KNOW BUT HE NEEDED TO GET OUT OF BED. OFFERED RECLINER CHAIR AND HE SAID HE NEEDED TO LEAVE. SHORT TIME LATER HE ASKED WHAT HE NEEDED TO SAY TO CONVINCE SOMEONE TO LEAVE AND LEAVE NOT HAVE ANY MORE OF THESE ISSUES FOLLOWING HIM. EXPLAINED THE PROBLEMS HE IS EXPERIENCING WITH CONTINUE TO FOLLOW HIM FROM THE HOSPITAL. WANTED TO BE LEFT ALONE FOR A BIT TO THINK. ONCE AGAIN HE WANTED TO LEAVE. STARTED TO ASSIST HIM WITH GETTING CLOTHES AND BELONGINGS TOGETHER TO LEAVE. EXPLAINED TO HIM THE WOUND VAC WAS GOING TO BE REMOVED AND NEW DRESSING APPLIED AND HE COULD CALL THE WOUND CLINIC AND SEE IF THEY COULD ASSIST WITH HIS WOUND CARE. AT THAT POINT HE DECIDED TO STAY. NOW DOZING AGAIN AND QUIET.
[2022-12-22 19:59] VITALS: BP 125/78
--- NOTE | 2022-12-23 02:33 | NUR ---
END OF SHIFT SUMMARY PT PLEASANT AND COOPERATIVE WITH CARE PROVIDED. PT A&O x4, VSS, AFEBRILE. PT CALLS APPROPRIATELY, ABLE TO MAKE NEEDS KNOWN. NO EVENTS OVERNIGHT. PT SLEPT WELL, MUCH BETTER THAN THE NIGHT BEFORE. PT RECEIVING SCHEDULED NORCO, WHICH WAS EFFECTIVE. PT LOCALIZED TO BILAT HIPS/FEET/KNEES, PT RATED PAIN LEVEL A 10/10. AFTER SCHEDULED NORCO, PT RATED PAIN 7/10. NO BEHAVIORS OVER NIGHT. WOUND VAC TO L HIP WOUND WORKING WELL, SUCTION STRENGTH AT 120mmHg IN PLACE. PT TOLERATING REPOSITIONING TO PREVENT FURTHER SKIN BREAKDOWN. CALL LIGHT WITHIN REACH, WCTM.
[2022-12-23 05:39] LABS: BASOPHILS ABSOLUTE AUTO 0.12 K/mm3 (0.00-0.23); BASOPHILS PERCENT AUTO 2 % (0-2); EOSINOPHILS ABSOLUTE AUTO 0.42 K/mm3 (0.00-0.68); EOSINOPHILS PERCENT AUTO 6 % (0-6); Hematocrit 36.2 % (37.0-53.0); IMMATURE GRAN ABSOLUTE AUTO 0.03 K/mm3 (0.00-0.10); IMMATURE GRAN PERCENT AUTO 0 % (0-1); LYMPHOCYTES ABSOLUTE AUTO 1.54 K/mm3 (0.84-5.20); LYMPHOCYTES PERCENT AUTO 22 % (21-46); MONOCYTES ABSOLUTE AUTO 0.73 K/mm3 (0.16-1.47); MONOCYTES PERCENT AUTO 11 % (4-13); Mean Corpuscular HGB 29.1 pg (26.0-34.0); Mean Corpuscular HGB Conc 33.1 g/dL (31.5-36.5); Mean Corpuscular Volume 88 fL (80-100); Mean Platelet Volume 9.4 fL (9.1-12.4); NEUTROPHILS PERCENT AUTO 59 % (41-73); Platelet Count 439 K/mm3 (150-400); RDW Coefficient Variation 12.9 % (11.7-14.2); Red Blood Cell Count 4.13 M/mm3 (4.30-5.90); White Blood Cell Count 6.94 K/mm3 (4.00-11.30)
[2022-12-23 05:57] VITALS: BP 130/81
[2022-12-23 06:10] LABS: Bun/Creatinine Ratio 57.8 (12.0-20.0); Creatinine, Blood 0.61 mg/dL (0.60-1.20); Potassium, Blood 4.3 mmol/L (3.5-5.5)
[2022-12-23 07:40] VITALS: BP 128/81
[2022-12-23 17:11] VITALS: BP 124/78
--- NOTE | 2022-12-23 18:27 | NUR ---
NO ACUTE CHANGES, WOUND VAC TAGADERM REINFORCED, PATIETN CONSTANTLY RESTLESS IN BED, RUBBING IN THE SHEETS, REFUSED PT/OT DUE TO HE FELT TO COLD, 3 WARMED BLANKETS AND THE ROOM SET AT 75 DEGREES, HELPED REPOSTION WHEN CHANGING AND BATH, USED BSU, USES CALL LIGHT, WILL RELAY TO PM RN
[2022-12-23 19:33] VITALS: BP 100/73
--- NOTE | 2022-12-24 03:32 | NUR ---
PT A&O X4, COOPERATIVE WITH CARE. COMPLAINTS OF 10/10 PAIN IN ALEX HIPS/KNEES/FEET, RECEIVING SCHEDULED NORCO WAS EFFECTIVE. ASSISTED WITH TURNING AND REPOSITIONG T/O SHIFT. PT HAS A SPECIALTY BED IN PLACE. PT TOOK PILLS WHOLE W/O ANY SWALLOWING DIFFICULTIES. PT HAS SEVERE CONTRACTURES OF EXTREMITIES. WOUND TO LEFT HIP HAS WOUND VAC IN PLACE SET TO 120MMHG DRAINING SANGUINEOUS FLUID. PT USES URINAL INDEPENDENTLY. BED KEPT IN LOWEST POSITION, CALL LIGHT WITHIN REACH, BED ALARM SET. WILL CONTINUE TO MONITOR UNITL END OF SHIFT.
[2022-12-24 05:26] VITALS: BP 130/74
[2022-12-24 08:33] VITALS: BP 118/75
[2022-12-24 15:17] VITALS: BP 109/71
--- NOTE | 2022-12-24 18:42 | NUR ---
NO ACUTE CHANGES, PATIENT CONTINUES TO DEMAND WANTS, PATIENT ADMIDTS HE IS FUSTRATED, PATIENT STATES "JUST GET THE FUCK OUT" TO STAFF WHEN HE IS FUSTRATED AND UNABLE TO DO HIS ADLS INDEPENDNTLY. PATIENT REFUSES TO BE REPOSITIONED, VSS, PILLOW CASES TO KNEE FOLDS, MEDICATED THROUGH OUT THE DAY WITH PRN AND SCHEDULED PAIN MEDS AND ANXIETY. LUNG SOUND DIMINSHED, SAT ON RA 95%, PATIENT CONTINUES TO STATE HE IS FREEZING AND NEEDS THEMOSTAT AT 80% AND WARMED BLANKETS. PATIENT DIAHORETIC WITH BEADS OF SWEAT ON FORHEAD, PATIENT SATURATING THE SHEETS WITH SWEAT. WOUND VAC DRESSING INTACT AND WORKING, WILL RELAY TO PM SHIFT, CALL LIGHT WITH IN REACH
[2022-12-24 20:02] VITALS: BP 123/65
--- NOTE | 2022-12-25 03:15 | NUR ---
SHIFT SUMMARY PT A&O X4, COOPERATIVE WITH CARE PROVIDED. COMPLAINTS OF BI HIP/KNEE/FOOT PAIN. RECEIVING SCHEDULED NORCO, EFFECTIVE IN PAIN CONTROL. PT USING URINAL, ATTENDS IN PLACE FOR ANY EPISODE OF INCONTINENCE. BEDPAN FOR BM. WOUND VAC IN PLACE @ 120 mmHg DRAINING SMALL AMOUNT OF SANGUINEOUS FLUID. PT HAS CONTRACTURES IN ALL 4 EXT AND IS VERY STIFF. PILLOW PLACED BETWEEN KNEES TO PREVENT FURTHER SKIN BREAKDOWN. WHEELCHAIR AT BASELINE. BED KEPT IN LOWEST POSITON WITH CALL LIGHT WITHIN REACH. WILL CONTINUE TO MONITOR.
[2022-12-25 15:52] VITALS: BP 124/75
--- NOTE | 2022-12-25 19:39 | NUR ---
SHIFT SUMMARY PT IS ALERT AND ORIENTED X4. TREATED PAIN PER EMAR. WOUND VAC WAS CHANGED BY JOANNE CAMARILLO, TODAY. NO ACUTE CHANGES. BED IS IN THE LOWEST POSITION WITH CALL LIGHT IN REACH. PT IS ABLE TO MAKE NEEDS KNOWN.
[2022-12-25 20:17] VITALS: BP 118/68
--- NOTE | 2022-12-26 03:26 | NUR ---
MAX WAS AWAKE ALL NIGHT WATCHING TV. DESPITE FREQUENT DOSING OF AVAILABLE PAIN MEDICATION WELL HS CYCLOBENZAPRINE, HE WAS NOT ABLE TO SLEEP AT ALL. WONDERING IF SOMETHING SPECIFICALLY FOR SLEEP MIGHT HELP HIM RELAX. WOUND VAC DRESSING REMAINS COMPRESSED WITH DRESSING CHANGED YESTERDAY AFTERNOON. VERY LITTLE OUTPUT OVERNIGHT. BED BATH GIVEN WHILE REPOSITIONING EARLY IN THE EVENING.
[2022-12-26 05:59] VITALS: BP 146/83
[2022-12-26 07:40] VITALS: BP 130/77
--- NOTE | 2022-12-26 10:45 | NUR ---
WOUND CARE WOUND VAC DRESSING CHANGED PER ORDER. TWO PIECES BLACK FOAM REMOVED, WOUND CLEANSED NS, HYDROCOLLOID TO PERIWOUND BREAKDOWN. WOUND WINDOWPANNED WITH TRANSPARENT FILM, TWO PIECES BLACK FOAM REAPPLIED. VAC SET TO CONTINUOUS 120 MMHG
[2022-12-26 15:26] VITALS: BP 125/62
--- NOTE | 2022-12-26 17:11 | NUR ---
SHIFT SUMMARY: Pt remains A&Ox3 this shift. VSS. Pain managed with current oral regime. Complete hygiene provided this am. Wound RN at bedside to change wound vac dressing. Pt skin frequently moist. Repostioned Q 2 hours, at times will decline turn. Able to use female urinal to void. BM this am. Will continue to monitor this shift.
[2022-12-26 19:49] VITALS: BP 107/64
[2022-12-27 03:46] VITALS: BP 132/76
--- NOTE | 2022-12-27 03:46 | NUR ---
SHIFT SUMMARY. SHIFT HAS BEEN MOSTLY UNREMARKABLE. PT HAS BEEN AOX3-4, COOPERATIVE WITH CARE. CAN BE SOMEWHAT IRRITABLE BUT REMAINS COOPERATIVE WITH CARE THUS FAR. HAS SLEPT THROUGH MOST OF SHIFT AFTER 2100 MED PASS AND SHIFT ASSESSMENT. PAIN WELL MANAGED ON CURRENT MEDICATION REGIMEN. SATS WELL ON ROOM AIR. BEDREST AT THIS TIME. AWAITING PLACEMENT. WOUND VAC IN PLACE AND REMAINS FUNCTIONING WELL. BED LOCKED IN LOWEST POSITION. CALL LIGHT LEFT WITHIN REACH.
[2022-12-27 07:19] VITALS: BP 123/76
[2022-12-27 15:36] VITALS: BP 121/72
--- NOTE | 2022-12-27 17:24 | NUR ---
SHIFT SUMMARY PATIENT YELLS OUT OCCAISIONALLY, TELLS STAFF NO ONE LISTENS TO HIM. PATIENT MEDICATED FOR PAIN PER EMAR. HE REFUSED OT THIS AFTERNOON AND 2 HOURS LATER HE COMPLAINS OF INCREASING CONTRACTURES, CRIES OUT WHEN THIS NURS ATTEMPTS PASSIVE RANGE OF MOTION OF LEGS. PATIENT ABLE TO OPEN AND CLOSE HIS HANDS AD MAUREEN. WILL CONTINUE TO MONITOR.
[2022-12-27 19:10] VITALS: BP 140/79
[2022-12-28 02:18] VITALS: BP 114/77
--- NOTE | 2022-12-28 03:33 | NUR ---
SHIFT SUMMARY. SHIFT HAS BEEN MOSTLY UNREMARKABLE. PT AOX4, HAS BEEN PLEASANT AND COOPERATIVE WITH CARE THROUGHOUT SHIFT. PAIN IS ADEQUATELY MANAGED VIA SCHEDULED AND PRN PAIN MEDICATIONS. PT INFORMED ME EARLY THIS MORNING THAT HIS PAIN IS DOWN TO ABOUT A 4/10 FOR THE FIRST TIME IN A WHILE DUE TO HIS CURRENT PAIN MANAGEMENT REGIMEN. PT REMAINS LIFT PT, WAS ABLE TO USE LIFT TO TRANSFER PT FROM CHAIR TO BED EARLY IN SHIFT WITHOUT DIFFICULTY. CONTINENT. CALLS APPROPRIATELY. WOUND VAC REMAINS IN PLACE AND FUNCTIONING WELL. BED LOCKED IN LOWEST POSITION. CALLLIGHT LEFT WITHIN REACH.
[2022-12-28 07:43] VITALS: BP 125/62
--- NOTE | 2022-12-28 13:27 | NUR ---
WOUND CARE WOUND VAC DRESSING CHANGED PER ORDER. TWO PIECES OF BLACK FOAM REMOVED, WOUND CLEANSED WITH DERMAL WOUND, SKIN PREP TO PERIWOUND, WINDOWPANED WITH TRANSPARENT FILM, TWO PIECES BLACK FOAM REAPPLIED. VAC SET TO CONTINUOUS 120MMHG. PT TOLERATED WELL
--- NOTE | 2022-12-28 19:28 | NUR ---
SHIFT SUMMARY PATIENT WITH PAIN TODAY, MEDICATED PER EMAR WITH MINIMAL RELIEF. PT C/O NOT SLEEPING LAST NIGHT, GIVEN SEROQUEL FOR AGITATION THIS AFTERNOON AND RESTED FOR A COUPLE HOURS. MAX REFUSED TO GET OUT OF BED FOR MEALS TODAY BUT TELLING STAFF HE WANTS TO GET OUT OF BED FOR ALL MEALS. THIS WAS PASSED ON TO THE PRESSED OR BLOWN GLASS WORKER NURS AND THAT DR UNGER ALSO WANTS HIM OUT OF BED FOR ALL MEALS AND MEDICATED FOR PAIN. PATIENT TURNED [id number] AND WAS ALSO UPSET ABOUT THIS AND NOT BEING ABLE TO TELL THE CNAS WHAT TO DO AND HOW TO DO IT. PATIENT IS VERY CONTRACTED AND AT RISK OF FURTHER PRESSURE ULCERS WITHOUT PROPER FLOATING.
[2022-12-28 19:51] VITALS: BP 107/68
[2022-12-29 02:01] VITALS: BP 124/74
--- NOTE | 2022-12-29 04:01 | NUR ---
SHIFT SUMMARY. SHIFT HAS BEEN MOSTLY UNREMARKABLE. PT AOX4, PLEASANT, COOPERATIVE WITH CARE. HAS BEEN ABLE TO SLEEP THROUGHUOT MOST OF THE SHIFT THUS FAR. MUCH MORESO THAN PREVIOUS SHIFTS WITH THIS NURSE. PAIN WELL MANAGED ON CURRENT MEDICATION REGIMEN. CONTINUES TO SAT WELL ON ROOM AIR. WOUND VAC IN PLACE AND FUNCTIONING WELL. CALLS APPROPRIATELY FOR ASSISTANCE. BED LOCKED IN LOWEST POSITION. CALL LIGHT LEFT WITHIN REACH.
[2022-12-29 07:32] VITALS: BP 118/70
--- NOTE | 2022-12-29 18:12 | NUR ---
PT AO AND COOPERATIVE OF HIS CARE TODAY. PT HAS GRUMPED ABOUT BEING UP IN CHAIR OF GETTING CLEANED UP, BUT SOME WHAT TOLERABLE TODAY. PT USES CALLIGHT OR WILL CALL OUT. WOUNDVAC IS RUNNING AT THIS TIME. CALL LIGHT IS WITHIN REACH WILL CONTINUE TO MONITOR.
[2022-12-30 04:21] VITALS: BP 128/78
--- NOTE | 2022-12-30 05:27 | NUR ---
SHIFT SUMMERY. PT RSTING IN BED, HAD SNACKS X 2 DURING THE NIGHT AND WAS ABLE TO FEED HIMSELF WITH JUST A LITTLE HELP TO OPEN THINGS. PT PAINFULL AND GETTING PAIN MEDS EVERY FEW HRS. CALL LIGHT IN REACH.
[2022-12-30 07:16] VITALS: BP 137/73
[2022-12-30 07:25] LABS: BASOPHILS ABSOLUTE AUTO 0.11 K/mm3 (0.00-0.23); BASOPHILS PERCENT AUTO 1 % (0-2); EOSINOPHILS ABSOLUTE AUTO 0.49 K/mm3 (0.00-0.68); EOSINOPHILS PERCENT AUTO 5 % (0-6); Hemoglobin 12.5 g/dL (13.5-17.5); IMMATURE GRAN ABSOLUTE AUTO 0.03 K/mm3 (0.00-0.10); IMMATURE GRAN PERCENT AUTO 0 % (0-1); LYMPHOCYTES ABSOLUTE AUTO 1.49 K/mm3 (0.84-5.20); LYMPHOCYTES PERCENT AUTO 15 % (21-46); MONOCYTES ABSOLUTE AUTO 0.73 K/mm3 (0.16-1.47); MONOCYTES PERCENT AUTO 7 % (4-13); Mean Corpuscular HGB 29.3 pg (26.0-34.0); Mean Corpuscular HGB Conc 33.8 g/dL (31.5-36.5); Mean Corpuscular Volume 87 fL (80-100); Mean Platelet Volume 9.6 fL (9.1-12.4); NEUTROPHILS ABSOLUTE AUTO 7.12 K/mm3 (1.96-9.15); NEUTROPHILS PERCENT AUTO 72 % (41-73); Platelet Count 440 K/mm3 (150-400); RDW Coefficient Variation 13.2 % (11.7-14.2); RDW Standard Deviation 41.4 fL (35.1-46.3); Red Blood Cell Count 4.26 M/mm3 (4.30-5.90); White Blood Cell Count 9.97 K/mm3 (4.00-11.30)
[2022-12-30 08:04] LABS: Bun/Creatinine Ratio 64.3 (12.0-20.0); Calcium, Blood 9.2 mg/dL (8.5-10.1); Creatinine, Blood 0.61 mg/dL (0.60-1.20); Potassium, Blood 4.4 mmol/L (3.5-5.5)
--- NOTE | 2022-12-30 10:23 | NUR ---
WOUND CARE WOUND VAC DRESSING CHANGED PER ORDER. TWO PIECES OF BLACK FOAM REMOVED WOUND CLEANSED WITH DERMAL WOUND, SKIN PREP AND TRANSPARENT FILM TO PERIWOUND. TWO PIECES BLACK FOAM TO WOUND BED. WOUND BED IS BEEFY RED WITH GRANULATION TISSUE. WOUND MARGINS DOV. VAC SET TO CONTINUOUS 120MMHG. PT TOLERATED WELL
[2022-12-30 15:19] VITALS: BP 131/71
--- NOTE | 2022-12-30 18:33 | NUR ---
NO ACUTE CHANGES PT AOX4 AND COOPERATIVE OF MOST CARE. PT NEEDS HELP TO REPOSITION AND TURN IN BED. USES CALL LIGHT APPROPRIATELY. WOUND VAC CHANGED TO DAY. WILL CONTINUE TO MONITOR.
[2022-12-30 19:11] VITALS: BP 136/74
--- NOTE | 2022-12-31 03:15 | NUR ---
SHIFT SUMMERY, PT RESTING IN BED, PT MEDICATD FOR PAIN AFEW TIMES. PT GIFN SNACKS, PT WAS REPOSITIONED SSEVRAL TIME. PT C/O BEING COLD DID NOT HAVE FEVER AND WAS SWEATY AND WANTING MORE BLANKET. GAVE PT MORE BLANKETS . PT AT THIS TIME APPEARS TO BE SLEEPING. CALL LIGHT IN REACH. PT SEEMS TO BE TRYING TO DO A MUCH FOR HIMSELF THAT HE CAM,
[2022-12-31 07:12] VITALS: BP 128/76
--- NOTE | 2022-12-31 09:00 | NUR ---
pt laying in bed has been changed, a/ox4, pleasant and cooperative with care, follows commands well, states pain is ok so far, lungs are clear on r/a, resp even and unlabored, no cough noted, hrr, btx4, abd round soft nontender, attempts to use the urinal, also has briefs in place, would vac to left hip, site is clear, lower ext are contracted, ira call light in reach.
[2022-12-31 15:51] VITALS: BP 123/83
--- NOTE | 2022-12-31 18:06 | NUR ---
pt was up to chair for a few hrs today, he is painful to move, he had a bedbath. no further changes this shift. call light in reach.
[2022-12-31 19:33] VITALS: BP 116/68
[2023-01-01 03:38] VITALS: BP 126/78
--- NOTE | 2023-01-01 03:51 | NUR ---
SHIFT SUMMARY PT DOING BETTER TODAY FEEDING SELF AND WATCHING TV, WOUND VAC FUNCTIONING AND DRESSING CDI. PT ONLY REQUESTING PAIN MEDICATION AND REPOSITIONING ON TO OF SOME SNACKS, SEEMS TO BE IN BETTER SPIRITS. PT CONTRACTED WHILE REPOSITIONING I AM ABLE TO FEEL AND HEAR BONE ON BONE MOVEMENT IN HIPS.
[2023-01-01 07:46] VITALS: BP 100/63
[2023-01-01 15:32] VITALS: BP 131/78
--- NOTE | 2023-01-01 17:53 | NUR ---
SHIFT SUMMARY NO ACUTE CHANGES. PT C/O PAIN IN HIPS. MEDICATED PER EMR WITH LITTLE EFFECT. PT VERBALIZED AWARNESS THAT HE NEEDS A HIP REPLACMENT TO EFFECTIVLY TREAT THE PAIN. REPOSITIONED PER PT REQUEST. DENIES FEELING SOB. PT CALLS APPROPRIATLY. BED IN LOWEST POSITION AND CALL LIGHT IN REACH.
[2023-01-01 21:00] VITALS: BP 123/78
[2023-01-02 04:38] VITALS: BP 140/81
--- NOTE | 2023-01-02 05:17 | NUR ---
SHIFT SUMMARY: PT IS ALERT AND ORIENTED. PT IS CALM AND COOPERATIVE WITH CARE. PT CALLS APPROPRIATELY. PT REQUIRES A LIFT FOR TRANSFERS, NOT OUT OF BED OVERNIGHT. PT REPORTS PAIN ON SEVERAL OCCASIONS, MEDICATING PER EMAR. PT DENIES NAUSEA, VOMITING, AND SOB. PT SLEPT INTERMITTENTLY THROUGHOUT THE NIGHT. NO ACUTE CHANGES OR COMPLICATIONS THIS SHIFT. WILL CONTINUE TO MONITOR.
[2023-01-02 07:14] VITALS: BP 132/71
--- NOTE | 2023-01-02 15:28 | NUR ---
WOUND CARE WOUND VAC DRESSING CHANGED PER ORDER. TWO PIECES BLACK FOAM REMOVED. WOUND CLEANSED WITH DERMAL WOUND. BREAKDOWN TO PERIWOUND COVERED WITH HYDROCOLLOID THEN DRAPED WITH TRANSPARENT FILM. ONE PIECE BLACK FOAM REAPPLIED. VAC SET TO CONTINUOUS 120MMHG. SLIGHT ODOR AND BLISTERING TO PERIWOUND NOTED. CULTURE OBTAINED. NEW PHOTO AND ASSESSMENTS IN HARD CHART. PT TOLERATED WELL
[2023-01-02 17:41] VITALS: BP 124/66
--- NOTE | 2023-01-02 17:48 | NUR ---
CALLED DR ALBERT- PT HAS A NEW ORDER FOR IV ABX. PT HAS NO IV ACCESS. WANTED TO CONFIRM THE NEW ORDER WOULD NECESSITATE PLACING A PERIPHERAL IV. DR ALBERT STATED TO DC THAT AND SWITCH TO CEFDINIR PO. ORDER PLACED IN ORDER MANAGEMENT.
--- NOTE | 2023-01-02 18:36 | NUR ---
SHIFT SUMMARY- PT ALERT AND ORIENTED AND IS ABLE TO DIRECT HIS CARE NEEDS MOST TIMES. PT HAS CHRONIC PAIN, AND PRESSURE SORES. WOUND VAC CHANGED TODAY BY TOP COLLAR BASTER 450ML OF DARK RED FLUID EMPTIED OUT OF WOUND VAC. PT STARTED ON PO ANTIBIOTICS. PAIN APEARED TO BE DIFFICULT TO MANAGE EARLIER IN THE DAY POSSIBLY RELATED TO THE DRESSING CHANGE. APPEARS WELL MANAGED AT THIS TIME. PT IN BED SLEEPNG NO S&S OF ISTRESS AT THIS TIME. CASIE PASS ON TO NIGHT RN IN REPORT.
[2023-01-02 19:38] VITALS: BP 100/61
[2023-01-03 03:33] VITALS: BP 106/65
--- NOTE | 2023-01-03 04:13 | NUR ---
TYLENOL GIVEN ONCE FOR BREAKTHROUGH PAIN. WOUND VAC IN PLACE. A&O X4. CALLS APPROPRIATELY.
--- NOTE | 2023-01-03 06:32 | NUR ---
PT HAD 2 TURKEY SANDWICHES AND A CHEESE STICK, 3 STRAWBERRY ICE CREAMS/2 CARTONS OF MILK AND MULTIPLE PRADIP CRACKERS SINCE AROUND 0300. PATIENT UPSET THIS AM BECAUSE HE WAS ASKED TO WAIT FOR BREAKFAST IN ORDER TO HAVE PROTEIN AND A GOOD MEAL. PATIENT STATES "I AM NOT A CHILD". THIS RN ENCOURAGED PATIENT TO WAIT FOR BREAKFAST. PATIENT UPSET.
[2023-01-03 08:52] VITALS: BP 111/81
--- NOTE | 2023-01-03 12:42 | NUR ---
PT REQUEST PT REQUESTED ALL 4 BED RAILS UP FOR HELP W/ IND REPOSITIONING.
[2023-01-03 16:27] VITALS: BP 116/69
--- NOTE | 2023-01-03 17:44 | NUR ---
SHIFT SUMMARY NO ACUTE CHANGES. CALL LIGHT WITHIN REACH AND PT ABLE TO MAKE NEEDS KNOWN.
[2023-01-03 19:34] VITALS: BP 150/92
[2023-01-04 04:04] VITALS: BP 132/74
--- NOTE | 2023-01-04 05:25 | NUR ---
NOC SHIFT SUMMARY: APD TO COME AND SEE PATIENT AT 1015 AM AND COORDINATE A ZOOM FOR A RCF IN [facility]. BOWEL MOVEMENT LAST NIGHT. SCHEDULED PAIN MEDICATION. ONE SNACK OVERNIGHT (TURKEY SANDWICH). CALLS APPROPRIATELY.
[2023-01-04 07:42] VITALS: BP 120/86
--- NOTE | 2023-01-04 13:42 | NUR ---
WOUND CARE WOUND VAC DRESSING CHANGED PER ORDER. ONE PIECE BLACK FOAM REMOVED, WOUND CLEANSED WITH DERMAL WOUND, SKIN PREP TO PERIWOUND, HYDROCOLLOID TO BREAKDOWN THEN DRAPED WITH TRANSPARENT FILM. ONE PIECE BLACK FOAM REAPPLIED. VAC SET TO CONTINUOUS 120MMHG. BLISTERING TO PERIWOUND MUCH IMPROVED WITH START OF ANTIBIOTIC. PT TOLERATED CHANGE WELL.
[2023-01-04 16:56] VITALS: BP 137/73
--- NOTE | 2023-01-04 18:42 | NUR ---
NO ACUTE CHANGES THIS SHIFT. PATIENT HAD A MEETING WITH APD AND A FACILITY IN [place] AND HE FELT GOOD ABOUT IT. PATIENT HAPPIER ABOUT FOOD SELECTIONS. SLEPT MOST OF THE AFTERNOON AND WOKE FOR DINNER. WOUND VAC CHANGED TODAY BY OANH WOUND CARE NURSE. LARGE BM THIS AM AND PATIENT USING URINAL TO VOID. ABLE TO USE CALL LIGHT FOR ASSISTANCE. REPORTS SEVERE HIP PAIN, PAIN MEDICATIONS SCHEDULED. NO NEW CONCERNS TODAY.
[2023-01-04 19:45] VITALS: BP 140/92
--- NOTE | 2023-01-05 03:52 | NUR ---
SHIFT SUMMARY PATIENT ALERT, PLEASANT AND COOPERATIVE. PAIN MANAGED PER EMAR WITH PRN AND ROUTINE SCHEDULED MEDICATIONS. WOUND VAC IN PLACE TO LEFT HIP, DSG INTACT, NO LEAKS. NO ACUTE CHANGES NOTED OVERNIGHT. BED LOCKED AND IN LOWEST POSITION, CALL LIGHT WITHIN REACH.
[2023-01-05 04:13] VITALS: BP 124/76
[2023-01-05 04:48] VITALS: BP 124/76
[2023-01-05 07:48] VITALS: BP 114/69
[2023-01-05 14:59] VITALS: BP 131/92
--- NOTE | 2023-01-05 15:31 | NUR ---
NO ACUTE CHANGES THIS SHIFT. VSS, ON RA. TOLERATING DIET, REQUIRES SOME ASSISTANCE WITH MEALS. HIPS PAINFUL WITH MOVEMENT, MEDICATIONS SCHEDULED TO CONTROL. WOUND VAC TO L HIP REMAINS C/D/I. DRESSING CHANGES ON M,W,F. USING URINAL TO VOID, CONTINENT OF BOWEL AND BLADDER. AWAITING PLACEMENT. CALM AND COOPERATIVE WITH CARE TODAY, USING CALL LIGHT APPROPRIATELY FOR ASSISTANCE. NO NEW CONCERNS THIS SHIFT.
--- NOTE | 2023-01-05 16:11 | NUR ---
1600: ASSUMED CARE OF PT, RECEIVED REPORT FROM GINA CAMARILLO. AGREE WITH PREVIOUS RN'S ASSESSMENT.
[2023-01-05 19:23] VITALS: BP 113/69
[2023-01-06 02:05] VITALS: BP 120/81
--- NOTE | 2023-01-06 03:51 | NUR ---
AMBER WAS QUIET OVERNIGHT. REFUSING HIS DINNER, AND NOT ASKING FOR THE LARGE AMOUNT OF SNACKS HE USUALLY DOES. HE DID ASK FOR TUMS AROUND 0200 WHICH DID APPEAR TO SOOTH HIM AND HE WAS ABLE TO FINALLY GET SOME SLEEP. NO OTHER CHANGES TO NOTE OVERNIGHT
[2023-01-06 08:03] VITALS: BP 140/89
[2023-01-06 16:03] VITALS: BP 106/72
--- NOTE | 2023-01-06 16:58 | NUR ---
DAYSHIFT SUMMARY Patient alert & oriented x3, no acute changes to patient status. Patient c/o severe pain t/o day. Medicated per EMAR, attempted to reposition patient. computer graphic designer changed dressing today. Vitals stable. Awaiting discharge planning.
[2023-01-06 21:14] VITALS: BP 115/70
[2023-01-07 03:19] VITALS: BP 111/68
--- NOTE | 2023-01-07 04:02 | NUR ---
SHIFT SUMMARY MAX WAS ALERT AND FULLY ORIENTED AT THE START OF THE SHIFT. HE HAD NO ACUTE CHANGES THIS SHIFT AND HIS ONLY COMPLAINT IS PAIN, WHICH HE STATED IS BETTER THAN IT HAS BEEN IN A FEW DAYS. MEDICATED PER EMAR. PT IS RESTING IN BED AT A LOW POSITION WITH THE CALL LIGHT IN REACH.
[2023-01-07 07:30] VITALS: BP 128/82
[2023-01-07 16:10] VITALS: BP 114/82
--- NOTE | 2023-01-07 18:27 | NUR ---
SHIFT SUMMARY- PT IS A/O, PLESANT AND COOPERATIVE. HE IS EATING AND DRINKING WELL. HE HAD A BM THIS SHIFT. HIS BED IS IN THE LOW POSITON AND CALL LIGHT IS ANALY HERRING.
--- NOTE | 2023-01-08 04:00 | NUR ---
SHIFT SUMMARY MAX WAS ALERT AND FULLY ORIENTED THIS SHIFT. HE WAS UPSET AT THE START OF THE SHIFT COMPLAINING THAT HE HASN'T BEEN GETTING ENOUGH 1:1 FEEDING ASSISTANCE HE BELIEVES HE NEEDS. HE COMPLAINS OF 8-10 OUT OF 10 PAIN AT ALL TIMES REGARDLESS OF MEDICATION AND INTERVENTION. NO ACUTE EVENTS TONIGHT. PT RESTING WITH BED IN LOW POSITION, CALL LIGHT IN REACH.
[2023-01-08 05:48] VITALS: BP 104/68
[2023-01-08 07:31] VITALS: BP 113/80
[2023-01-08 17:26] VITALS: BP 137/68
--- NOTE | 2023-01-08 17:57 | NUR ---
SHIFT SUMMARY: PT A&O X4. PT CALLED MANY TIMES THIS SHIFT. ATTEMPTED TO EXPLAIN TO PT THAT STAFF WOULD ROUND EVERY HOUR. PT BECAME AGITATED AND THREW URINAL ON FLOOR, APPLESAUCE AT WALL, AND DUMPED ENTIRE ROOT BEER ON GROUND. PT STATED HE IS UPSET DUE TO STAFF NOT FEEDING HIM. PT IS ABLE TO REACH DRINKS, CELL PHONE, URINAL OFF BEDSIDE TABLE AND BRING TO MOUTH AND EAR. PT IS AWARE HE NEEDS TO ATTEMPT TO FEED SELF AND IF UNABLE STAFF WOULD HELP BUT HE WOULD HAVE TO MAKE ATTEMPT. PAIN MEDICATIONS PROVIDED PER EMAR. WOUND VAC IN PLACE. REFUSING BED BATH REGARDLESS OF SMELL OF WOUND AND MULTIPLE ATTEMPTS FROM STAFF. CALL LIGHT IN REACH. BED IN LOWEST POSITION.
[2023-01-08 20:13] VITALS: BP 121/72
--- NOTE | 2023-01-09 03:58 | NUR ---
SHIFT SUMMARY MAX IS ALERT AND ORIENTED AT START OF SHIFT. PT UPSET AT START OF SHIFT AGAIN ABOUT NOT GETTING MUCH 1:1 ATTENTION HE WANTS, SPECIFICALLY IN REGARD TO HELP FEEDING. NO ACUTE EVENTS TONIGHT, PT'S PATTERN OF PAIN COMPLAINT HAS REMAINED THE SAME TONIGHT PREVIOUS NIGHTS. PT IS CURRENTLY RESTING IN BED AT A LOW POSITION WITH THE CALL LIGHT IN REACH.
[2023-01-09 06:02] VITALS: BP 110/73
[2023-01-09 07:32] VITALS: BP 149/91
--- NOTE | 2023-01-09 16:09 | NUR ---
WOUND CARE WOUND VAC DRESSING CHANGED PER ORDER. TWO PIECES BLACK FOAM REMOVED WOUND CLEANSED WITH DERMAL WOUND. PERIWOUND BREAKDOWN ALMOST WITH 90% EPITHELIALIZATION. HYDROCOLLOID TO REMAINING OPEN SKIN. WOUND DRAPED WITH TRANSPARENT FILM. TWO PIECES BLACK FOAM REAPPLIED, VAC SET TO CONTINUOUS 120MMHG.PT TOLERATED WELL
[2023-01-09 16:43] VITALS: BP 101/78
--- NOTE | 2023-01-09 16:45 | NUR ---
SHIFT SUMMARY: PT A&O X4. PT MORE COOPERATIVE THIS SHIFT THAN YESTERDAY. PT AWARE TO USE CALL LIGHT FOR EMERGENCIES AND STAFF WOULD ROUND Q1. WOUND VAC AND DRESSING CHANGED THIS SHIFT BY WOUND RN. PT HAD ONE EPISODE WHERE HE STATED HE WANTED TO LEAVE AMA. NATHEN UTILITY SYSTEM OPERATOR ARRIVED SHORTLY AFTER TO TALK. PT STATES HE IS STILL UNABLE TO FEED SELF DESPITE REACHING FOR ITEMS ON TABLE. CALL LIGHT IN REACH. BED IN LOWEST POSITION.
[2023-01-09 19:40] VITALS: BP 131/75
--- NOTE | 2023-01-10 03:46 | NUR ---
AIDS NURSE SUMMARY VSS. WOUND VAC TO LEFT HIP IN USE. USES CALL LIGHT APPROPRIATELY. PAIN MEDS ADMIN PER MAY. MEDS EFFECTIVE. HAS BEEN RESTING QUIETLY WITH FEW INTERRUPTIONS. CONTACT ISOLATION PRECAUTIONS MAINTAINED. CALL LIGHT IN REACH. WILL CONTINUE TO MONITOR.
[2023-01-10 05:12] VITALS: BP 122/73
[2023-01-10 07:50] VITALS: BP 120/68
--- NOTE | 2023-01-10 17:01 | NUR ---
Spiritual Care Nurse Request Pt. is awake in bed and welcomes my visit. Pt. is unsettled about ALOT of things but verbalizes that he is most upset by feeling like he has no one. Facilitated a fairly lengthy life review. Listen with empathy and a calming interest. Pt. verbalizes that he has a personal nicole, and so we considered matters of nicole and belief. Prayed with Pt. Pt. verbalized gratitude for the initial spiritual care visit and welcomes this pest control chemical technician to return. After the visit, this pest control chemical technician de-briefed with his LITHOGRAPHIC RETOUCHER APPRENTICE Melanie.
[2023-01-10 17:12] VITALS: BP 136/77
--- NOTE | 2023-01-10 17:55 | NUR ---
SHIFT SUMMARY: PT A&O X4. PT PLEASANT AND COOPERATIVE WITH CARE MOST OF THIS SHIFT. PT REQUESTED "THERAPY" THIS SHIFT D/T FRIEND CALLING PATIENT AND HAVING AGRESSIVE/HURTFUL WORDS WITH PT. KRISTINA CALLED BY MARQUISE RUBIO. OT WORKED WITH PT THIS SHIFT. ATTEMPTED OOB W/ SLING BUT UNABLE WITH SLING THAT WAS USED. PT C/O -12/20 IN BILAT HIPS. MEDICATED PER EMAR. PT UPSET THIS SHIFT THAT MARQUISE RUBIO MOVED ITEMS TO PUT FOOD TRAY DOWN. WOUND C/D/I. CALL LIGHT IN REACH. BED IN LOWEST POSITION.
--- NOTE | 2023-01-10 17:56 | NUR ---
PATIENT AGREED TO HAVE DINNER TRAY AND SET UP WITH THE SIDE TABLE, THIS NURSE REMOVED 2 OF THE 5 BLANKETS TO MAKE SURE HIS KNEES DID NOT GET HURT, PATIENT "YOU CAN JST LEAVE, IM DONE TALKING WITH YOU" I ASKED "DO YOU NOT WANT YOUR DINNER TRAY" PATIENT REPLIED "I DONT WANT DINNER, AND JUST GET OUT OF MY ROOM. THIS NURSE LEFT TRAY IN ROOM AND AGREED TO LEAVE REPORTED TO MIKHAIL CAMARILLO.
[2023-01-10 19:46] VITALS: BP 113/70
[2023-01-11 03:49] VITALS: BP 128/76
--- NOTE | 2023-01-11 05:29 | NUR ---
SHIFT SUMMARY: PT IS ADMITTED FOR LEFT LEG CELLULITIS AND IS A FULL CODE. IS ALERT AND ABLE TO MAKE NEEDS KNOWN. ADL S WERE 2P MOD -MAX DEPENDING ON ACTIVITY. DID NOT GET OUT OF BED THIS SHIFT. PAIN IS MANAGED BY SCHEDULED PAIN MANAGEMENT THAT SEEMS TO BE RELATIVELY EFFECTIVE. IS ON ISO FOR MRSA. HAS A WOUND VAC TO THE LEFT HIP THAT IS CDI AND PATENT.
[2023-01-11 07:36] VITALS: BP 110/74
[2023-01-11 14:52] VITALS: BP 117/75
--- NOTE | 2023-01-11 17:38 | NUR ---
SHIFT SUMMARY PATIENT IRRITABLE THIS MORNING. PATIENT TEARFUL AT BREAKFAST AND ASKING STAFF TO LEAVE HIM ALONE. DAY PROGRESSED, PATEINT LESS IRRITABLE AND COOPERATING WITH STAFF. WOUND CARE PROVIDED TO L HIP AND RECONNECTED TO WOUND VAC. PATIENT CONTINUES TO BE VERY CONTRACTED AND REQUIRING PILLOWS BETWEEN KNEES AND BETWEEN HEELS AND BUTTOCKS TO PREVENT PRESSURE TO AREAS. CASE MANAGEMENT WORKING ON PLACEMENT. FACILITY IN [place] ACCEPTED PATIENT. PATIENT MEDICATED PER MAY ORDERED FOR PAIN.
[2023-01-11 19:28] VITALS: BP 127/88
[2023-01-12 02:49] VITALS: BP 102/66
--- NOTE | 2023-01-12 04:03 | NUR ---
SHIFT SUMMARY MAX WAS ALERT AND FULLY ORIENTED THIS SHIFT. NO ACUTE CHANGES OR EVENTS TONIGHT. MAX CONTINUES TO COMPLAIN OF 7-10 / 10 PAIN WHENEVER ASKED, MEDICATED PER EMAR. PT TRIED UNSUCCESSFULLY TO HAVE A BOWEL MOVEMENT SEVERAL TIMES. PT RESTING IN BED AT A LOW POSITION WITH THE CALL LIGHT IN REACH.
[2023-01-12 07:14] VITALS: BP 128/74
[2023-01-12 15:14] VITALS: BP 129/70
--- NOTE | 2023-01-12 18:07 | NUR ---
SHIFT SUMMARY PT AXO, IRRITABLE BUT MOSTLY COOPERATIVE WITH CARE. PATIENT ENCOURAGED OOB TO CHAIR VIA LIFT BUT PT DELAYED UNTIL AFTER 1500. VSS. WOUND VAC IN PLACE AND PATENT AND DRAINING SCANT AMOUNT OF FLUID. PT SMELLS FOUL DESPITE BEDBATH A HYGIENE. PT UP TO CHAIR X1 THIS SHIFT VIA LIFT. PT MEDICATED FOR PAIN PER EMAR ALTHOUGH WITH 1800 SCHEDULED DOSE OF NORCO HELD R/T PT SEDATION. PT DENIES SOB AND NV. SKIN ASSESSED AND MONITORED THROUGHOUT THE SHIFT. BED IN LOW POSITION, CALL LIGHT WITHIN REACH.
[2023-01-12 20:18] VITALS: BP 112/77
--- NOTE | 2023-01-13 03:57 | NUR ---
SHIFT SUMMARY MAX WAS SOMULENT BUT FULLY ORIENTED AT THE START OF THE SHIFT. PT IN A BETTER MOOD TODAY. NO ACUTE EVENTS, NO CHANGES IN CONDITION. PT COMPLAINS OF MAX LEVEL PAIN AT PRETTY MUCH ALL TIMES REGARDLESS OF MEDICATION. DRESSING IS CLEAN AND DRY. PT RESTING IN BED AT A LOW POSITION WITH CALL LIGHT IN REACH
[2023-01-13 05:44] VITALS: BP 103/63
[2023-01-13 08:25] VITALS: BP 113/69
--- NOTE | 2023-01-13 16:15 | NUR ---
SHIFT SUMMARY: PATIENT IS A/OX4. CALM, PLESANT AND COOPERATIVE c CARE PROVIDED. DENIES CP/PRESSURE, SOB, N/V, DIZZINESS. PAIN TO BOTH HIPS WELL MANAGED c SCHEDULED PAIN MEDS PER EMAR. DRESSING TO L HIP C/D/I, WOUND VAC DRAINING SANGUINEOUS c MALODOROUS SMELL. PATIENT RECEIVED SCHEDULED MEDS PER EMAR. PATIENT HAD BEDBATH AND LINEN CHANGED THIS AM, REPOSITIONED, CONTINENCE OF URINE AND USES URINAL IN BED INDEPENDENTLY. PATIENT IS CONTINENCE OF BOWELS, USES BEDPAN AND HAD LARGE, FORMED BROWN BM THIS SHIFT. PATIENT IS EATING AND DRINKING WELL. NO IV ACCESS PER ORDER. PATIENT STILL ON CONTACT ISOLATION FOR HX OF MRSA IN WOUND. BED IN LOWEST POSITION. CALL LIGHT IN REACH.
[2023-01-13 17:08] VITALS: BP 125/86
[2023-01-13 20:03] VITALS: BP 113/84
[2023-01-14 05:50] VITALS: BP 148/90
--- NOTE | 2023-01-14 06:12 | NUR ---
SHIFT SUMMARY PT LAYING IN BED DURING BEDSIDE ROUNDS, WOUND VAC IN PLACE TO LEFT HIP - DRESSING WNL- PT TOOK SCHEDULED HS MEDS WITHOUT PROBLEMS, PT REQUESTED SNACK T/O SHIFT, REPOSITIONED PT T/O NIGHT, PT USED URINAL WITHOUT PROBLEMS- PT ON AIR BED - PT PLEASENT AND COOPERATIVE T/O NIGHT- CALL LIGHT WITHIN REACH -PT ABLE TO MAKE NEEDS KNOWN
[2023-01-14 07:21] VITALS: BP 134/81
[2023-01-14 15:30] VITALS: BP 125/91
[2023-01-14 15:32] VITALS: BP 132/76
--- NOTE | 2023-01-14 16:39 | NUR ---
SHIFT SUMMARY: NO NEW ACUTE CHANGES IN PATIENT CONDITION THIS SHIFT. PATIENT CALM, PLEASANT AND COOPERATIVE c CARE PROVIDED THIS SHIFT. REPOSITIONED, WOUND VAC TO L HIP IN PLACED, PATENT AND DRAINING SANGUINEOUS FLUID c MALODOROUS SMELL. RECEIVED BEDBATH ABD LINEN CHANGED TODAY. PATIENT CONTINENCE OF BLADDER AND USES URINAL IN BED INDEPENDENTLY T/O SHIFT. PATIENT IS EATING AND DRINKING WELL. PAIN TO HIPS WELL CONTROLLED c SCHEDULED PAIN MEDS PER EMAR. VITAL SIGNS REVIEWED. NO IV ACCESS PER ORDER. CALL LIGHT IN REACH.
[2023-01-14 19:14] VITALS: BP 133/85
[2023-01-15 07:16] VITALS: BP 135/94
[2023-01-15 15:20] VITALS: BP 125/88
--- NOTE | 2023-01-15 17:38 | NUR ---
SHIFT SUMMARY PT A/OX3. PT COOPERATIVE WITH CARE. PT CONTINUES TO REPORT 8-10/10 PAIN. PT HAD BM TODAY ON BEDPAN. PT VERY CONSTIPATED AND STRAINING WITH BM. NEW ORDER FOR MIRALAX DAILY AND PRN SUPOSITORY. PT GIVEN PRUNE JUICE TODAY AND MIRALAX. DECLINING THE SUPPOSITORY AT THIS TIME. WOUND VAC IN PLACE WITH PATENT SEAL TO LEFT HIP PRESSURE ULCER. PT ABLE TO MAKE NEEDS KNOWN.
[2023-01-15 19:32] VITALS: BP 123/80
[2023-01-16 04:52] VITALS: BP 116/71
[2023-01-16 06:10] LABS: BASOPHILS ABSOLUTE AUTO 0.07 K/mm3 (0.00-0.23); BASOPHILS PERCENT AUTO 1 % (0-2); EOSINOPHILS ABSOLUTE AUTO 0.49 K/mm3 (0.00-0.68); EOSINOPHILS PERCENT AUTO 7 % (0-6); Hematocrit 38.7 % (37.0-53.0); Hemoglobin 12.8 g/dL (13.5-17.5); IMMATURE GRAN ABSOLUTE AUTO 0.01 K/mm3 (0.00-0.10); IMMATURE GRAN PERCENT AUTO 0 % (0-1); LYMPHOCYTES ABSOLUTE AUTO 1.68 K/mm3 (0.84-5.20); LYMPHOCYTES PERCENT AUTO 25 % (21-46); MONOCYTES ABSOLUTE AUTO 0.65 K/mm3 (0.16-1.47); MONOCYTES PERCENT AUTO 10 % (4-13); Mean Corpuscular HGB 28.9 pg (26.0-34.0); Mean Corpuscular HGB Conc 33.1 g/dL (31.5-36.5); Mean Corpuscular Volume 87 fL (80-100); Mean Platelet Volume 9.8 fL (9.1-12.4); NEUTROPHILS ABSOLUTE AUTO 3.94 K/mm3 (1.96-9.15); NEUTROPHILS PERCENT AUTO 58 % (41-73); Platelet Count 354 K/mm3 (150-400); RDW Coefficient Variation 12.9 % (11.7-14.2); RDW Standard Deviation 41.1 fL (35.1-46.3); Red Blood Cell Count 4.43 M/mm3 (4.30-5.90); White Blood Cell Count 6.84 K/mm3 (4.00-11.30)
[2023-01-16 06:28] LABS: Albumin, Blood 3.6 g/dL (3.4-5.0); Albumin/Globulin Ratio 1.1 (0.8-1.8); Bilirubin, Total 0.9 mg/dL (0.1-1.0); Bun/Creatinine Ratio 48.3 (12.0-20.0); Calcium, Blood 9.7 mg/dL (8.5-10.1); Creatinine, Blood 0.62 mg/dL (0.60-1.20); Globulin, Blood 3.4 g/dL (2.2-4.0); Potassium, Blood 4.2 mmol/L (3.5-5.5)
[2023-01-16 07:33] VITALS: BP 120/75
--- NOTE | 2023-01-16 09:01 | NUR ---
MORNING MEDICATIONS PT REFUSED MORNING MEDICATIONS, MOANING AND GROANING. STAED," I DON'T WANT ANY OF THE FUCKING SHIT FROM YOU. YOUR JUST A BITCH." REPLIED THAT PT CAN CALL IF HE CHANGES HIS MIND. CARE ON GOING.
--- NOTE | 2023-01-16 11:22 | NUR ---
DEBIT CARD GREEN DEBIT CARD SEEN ON BED SIDE TABLE. CARE ON GOING.
--- NOTE | 2023-01-16 15:34 | NUR ---
WOUND CARE WOUND VAC DRESSING CHANGED PER ORDER. ONE PIECE BLACK FOAM REMOVED, WOUND CLEANSED WITH DERMAL WOUND, HYDROCOLLOID TO PERIWOUND BREAKDOWN. WOUND WINDOWPANNED WITH TRANSPARENT FILM. ONE PIECE BLACK FOAM REAPPLIED. VAC SET TO CONTIMUOUS 120MMHG. GOOD SEAL ACHIEVED. PT TOLERATED WELL
[2023-01-16 16:08] VITALS: BP 122/73
--- NOTE | 2023-01-16 18:12 | NUR ---
NOTE PT AWAKE AND ALERT. USING CALL LIGHT. BM X1 TODAY. VSS. WOUND VAC DRESSING CHANGED PER WOUND CARE NURSE. ODOR IN ROOM HAS RESOLVED SINCE WOUND VAC CHANGE. MEDICATED FOR PAIN PER EMAR. HE REFUSED TO GET OOB. EATING WELL. CONTINUE POC.
[2023-01-16 20:10] VITALS: BP 118/65
[2023-01-17 02:07] VITALS: BP 102/66
--- NOTE | 2023-01-17 05:07 | NUR ---
SHIFT SUMMARY PT IS A&04, BEDBOUND AT BASELINE, RA, VSS, WOUND VAC CHANGED YESTERDAY BY WOUND CARE, NO ACUTE OVERNIGHT EVENTS CONTINUE POC
[2023-01-17 07:40] VITALS: BP 127/76
[2023-01-17 15:09] VITALS: BP 127/74
--- NOTE | 2023-01-17 15:30 | NUR ---
Pt. is awake in bed and welcomes my visit. Pt. is pleasant but displays evidence of not being interested in spiritual care. Facilitated an update on his physical condition. Pt. verbalized his plan of care with the objective of getting to a SNF in [place]. Pt. verbalized graititude for the spiritual care visit.
[2023-01-17 19:31] VITALS: BP 118/63
[2023-01-18 03:57] VITALS: BP 127/80
--- NOTE | 2023-01-18 05:13 | NUR ---
SHIFT SUMMARY PT IS A&O4, BEDREST, WOULD VAC TO LEFT HIP PATENT, RA, VSS, PT WAS AGGRESSIVE AND INAPPROPRIATE AT THE BEGINING ON THE SHIFT YELLING AT STAFF WITH UNREASONABLE REQUESTS OF 'GOING TO THE STORE FOR HIM TO GET A NEW PHONE SINCE WE BROKE HIS" AND UNCOOPERATIVE WITH CARE TELLING STAFF TO STAY OUT OF HIS ROOM.
[2023-01-18 07:58] VITALS: BP 133/88
--- NOTE | 2023-01-18 13:48 | NUR ---
WOUND CARE WOUND BED IS ALMOST FLUSH WITH SOME SMALL AREAS OF HYPERGRANULATION. DC WOUND VAC. WOUND CLEANSED WITH DERMAL WOUND THEN CALCIUM ALGINATE TO WOUND BED COVERED WITH BORDERED FOAM. PT TOLERATED WELL
[2023-01-18 15:23] VITALS: BP 107/66
--- NOTE | 2023-01-18 16:13 | NUR ---
SHIFT SUMMARY PT A&O X 4, PLEASANT & COOPERATIVE WITH ALL CARE THIS SHIFT. PT AGREED TO BED BATH TODAY. LINEN CHANGED. APPETITE IS GOOD. MEDICATED FOR PAIN PER EMAR WITH GOOD RELIEF STATED BY PT. WOUND CARE NURSE DC'D WOUND VAC TODAY. DRESSING CHANGE ORDERS IN CHART. MEPIPLEX ON L HIP WOUND ACCORDING TO WOUND DRESSING ORDER. REMAINS C/D/I. PLAN IS FOR PLACEMENT ONCE BED AVAILABILITY ESTABLISHED.
[2023-01-18 20:01] VITALS: BP 119/72
[2023-01-19 05:17] VITALS: BP 131/79
--- NOTE | 2023-01-19 05:34 | NUR ---
SHIFT SUMMARY A/O VSS UNEVENTFUL EVENING PT WAS MEDICATED FOR PAIN PER MAY , AND REPOSITIONED EVERY COUPLE OF HOURS. PT DUE TO BE TRANFERED AT SOMEPOINT NEXT WEEK. PREVIOUS WOUND VAC SITE WNL CDI WITH MEPILEX
[2023-01-19 15:17] VITALS: BP 137/87
--- NOTE | 2023-01-19 16:41 | NUR ---
SHIFT SUMMARY; PATIENT REMAINS ON BEDDREST THROUGHOUT DAY SHIFT. LOQWER LIMBS ARE CONTRACTED AND UPPER LIMBS ARE TREMULOUS AND PATIENT HAS MUCH DIFFICULTY QWITH FINE MOTOR SKILLS. HE REMAINS VERY PAINFULL THROUGHOUT THE DAY. THIS AFTERNOON PAITENT IS NOTED TO BE VERY DIAPHORETIC WITH SWEAT DRIPPING FROM FACE ARMS AND LOWER LIMBS. HE COMPLAINS OF PAIN 10/10. NOTIFIED AND ORDER FOR 1MG DILAUDID. NOTED THAT PATIENT DID NOT HAVE IV SO DECISION TO GIVE MEDICATION IM. PATIENT CURRENTLY HAS RELIEF FROM PAIN AND STATES IT IS MUCH MORE MANAGABLE. HE IS STILL DIAPHORETIC, BUT APPEARS TO REST OFF AND ON.
[2023-01-19 19:39] VITALS: BP 126/72
--- NOTE | 2023-01-20 03:06 | NUR ---
REPORT RECEIVED VERIFIED PT A/O VSS REARRANGING PERSONAL BELONGINGS BECAUSE HE IS GETTING READY TO GO THIS MONDAY. PT SEEMS TO BE IN HIGHER SPIRITS THEN BEFORE. PT ALSO ORDERED A PIZZA AND ATE ALMOST ALL OF IT SHOWING HE HAD A GOOD APPETITE AND A POSSIBLILITY FOR GOOD WOUND OUTCOME. PT WENT TO SLEEP EARLY AND DID WELL THROUGHOUT THE NIGHT. PAIN WAS MINIMAL
[2023-01-20 04:20] VITALS: BP 99/56
[2023-01-20 07:52] VITALS: BP 144/85
[2023-01-20] MEDS ORDERED: Seroquel Xr50 MG PO (15:10)
[2023-01-20] MEDS ORDERED: [UNRECOGNIZED DRUG - OTHER] PO (15:11)
[2023-01-20] MEDS ORDERED: LACT PO (15:11)
[2023-01-20] MEDS ORDERED: THERA-D2000 UNIT PO (15:12)
[2023-01-20] MEDS ORDERED: BISA10S PR ×2 (15:13→15:19)
[2023-01-20] MEDS ORDERED: CYCL10 PO (15:15)
[2023-01-20] MEDS ORDERED: FAMO20 PO (15:21)
[2023-01-20] MEDS ORDERED: ENOX40I SC (15:21)
[2023-01-20] MEDS ORDERED: MIRT15 PO (15:23)
[2023-01-20] MEDS ORDERED: MULVITA PO (15:23)
[2023-01-20] MEDS ORDERED: [UNRECOGNIZED DRUG - CODE] PO (15:26)
[2023-01-20] MEDS ORDERED: Norco 7.5-3251 EACH PO (15:31)
[2023-01-20] MEDS ORDERED: MORP15ER PO (15:32)
[2023-01-20] MEDS ORDERED: Senna-Extra17.2 MG PO (15:34)
[2023-01-20 16:02] VITALS: BP 142/93
[2023-01-20 20:46] VITALS: BP 162/90
[2023-01-21 03:26] VITALS: BP 123/72
--- NOTE | 2023-01-21 04:02 | NUR ---
SHIFT SUMMARY ADMITTED FOR LEFT LEG CELLULITIS. CONTACT PRECAUTIONS FOR MRSA IN WOUND. WOUND VAC REMOVED FROM PRESSURE ULCER LEFT BUTTOCK ON 01/18/23. WC BOUND @ BASELINE. HE IS A&O X4. HE USES A URINAL. INCONTINENT AT TIMES. PLAN IS FOR PLACEMENT. PREVIOUSLY HOMELESS. SEVERE OSTEOARTHRITIS/CONTRACTURES OF BILAT HIPS. STAGE 2 ULCERS LEFT SHOULDER AND LEFT FOOT.
[2023-01-21 07:33] VITALS: BP 127/72
[2023-01-21 16:18] VITALS: BP 126/86
--- NOTE | 2023-01-21 18:32 | NUR ---
SHIFT SUMMARY NO ACUTE CHANGES THIS SHIFT. TREATED PAIN PER EMAR. CHANGED L HIP DRESSING. MODERATE PURULENT DRAINAGE NOTED. UPDATED PICS IN CHART OF PER MD REQUEST.
[2023-01-21 19:28] VITALS: BP 132/81
--- NOTE | 2023-01-22 03:59 | NUR ---
SHIFT SUMMARY A/OX4. CAN BE IRRITABLE, TALKING TO HIMSELF IN THE ROOM BUT NOT HALLUCINATING. ROOM AIR. BASELINE WHEELCHAIR BOUND, CONTRACTURES TO BILATERAL LE. IMPAIRED ROM UPPER EXTREMITIES WELL. L HIP DRESSING IN PLACE, DRAINAGE NOTED BUT NOT SOILED ENOUGH TO CHANGE. PAIN MEDS GIVEN PER EMAR SCHEDULED WITH REPORTED RELIEF. PENDING PLACEMENT. NO IV. ABLE TO MAKE NEEDS KNOWN, CALL LIGHT IN REACH. CAN CALL FREQUENTLY, PT EDUCATED ON HOURLY ROUNDING AND TO ANTICIPATE NEEDS. BED LOCKED IN LOW POSITION.
[2023-01-22 05:45] VITALS: BP 141/86
--- NOTE | 2023-01-22 07:19 | NUR ---
DRESSING CHANGE 01/22/23 DRESSING WAS LAST CHANGED YESTERDAY 01/21/23 BY DAY SHIFT NURSE. DRAINAGE WAS NOTED ON MEPILEX BUT THIS MORNING DRAINAGE STARTED OOZING OUT FROM UNDERNEATH MEPILEX. WOUND CARE DONE PER ORDERS.
[2023-01-22 07:32] VITALS: BP 146/89
[2023-01-22 15:25] VITALS: BP 144/77
--- NOTE | 2023-01-22 19:14 | NUR ---
NO CHANGES THIS SHIFT. PT IS ALERT AND ORIENTED X4. TREATED PAIN PER EMAR. BED IS IN THE LOWEST POSITION WITH CALL LIGHT IN REACH. PT IS ABLE TO MAKE NEEDS KNOWN.
[2023-01-22 19:50] VITALS: BP 161/85
[2023-01-23 04:45] VITALS: BP 132/79
--- NOTE | 2023-01-23 06:25 | NUR ---
SHIFT SUMMARY PATIENT A/OX4. ROOM AIR. INCREASED PAIN AT BEGINNING OF SHIFT. STATES UNCONTROLED WITH SCHEDULED PAIN MEDS ORDERED PER EMAR. LEATHER CURRIER PROVIDER NOTIFIED, DR. HIGUERA, AND ORDERED 1X DOSE OF MORPHINE IMMEDIATE RELEASE 15 MG TO BE GIVEN ALONG WITH SCHEDULED 15 MG MORPHINE EXTENDED RELEASE. PATIENT REPORTED RELEIF WITH THIS AND HAS RECEIVED SCHEDULED PAIN MEDS PER EMAR SINCE. DRESSING TO LEFT HIP CHANGED DUE TO DRAINAGE. MEPILEX PLACED TO REDDENED AREA ON RIGHT HIP. ASSIST WITH REPOSITIONING IN BED. WHEELCHAIR AT BASELINE DUE TO CONTRACTED BILATERAL LE. URINAL ASSISTANCE OTHERWISE HE TENDS TO SPILL ON HIMSELF. ABLE TO MAKE NEEDS KNOWN. CALL LIGHT IN REACH. BED LOCKED IN LOW POSITION.
[2023-01-23 07:35] VITALS: BP 130/67
[2023-01-23 15:34] VITALS: BP 135/87
--- NOTE | 2023-01-23 16:51 | NUR ---
SHIFT SUMMARY PT MEDICATED FOR PAIN SCHEDULED. SEE EMAR. PLEASANT & COOPERATIVE T/O SHIFT. WOUND CARE COMPLETED TO L HIP WITH CALCIUM ALGINATE AND A FOAM OVERTOP. WOUND CARE TO BE COMPLETED BID UNTIL WOUND VAC CAN BE PLACED TOMORROW BY GARMENT CUTTER. PT PLAN TO DC TO FACILITY IN [place] TOMORROW LONG WOUND VAC ORDERS AND WOUND VAC ARE IN PLACE PRIOR. NO OTHER ACUTE CHANGES IN ASSESMENT AT THIS TIME. VS REVIEWED. CALL LIGHT IN REACH.
[2023-01-23 19:24] VITALS: BP 141/66
--- NOTE | 2023-01-24 04:33 | NUR ---
Shift Summary Pt very painful wali, c/o 10 pain after his scheduled 0000 Sheldon. I called the hospitalist who declined to add more pain medications. Pt repositioned Q2, moving him from his side to his back did help with his pain. Dressing on L hip changed this AM. Plan is for wound nurse to place wound vac tomorrow and then pt can be d/c to a facility in [place].
[2023-01-24 05:33] VITALS: BP 149/89
[2023-01-24 07:41] VITALS: BP 135/91
[2023-01-24 15:58] VITALS: BP 148/87
--- NOTE | 2023-01-24 18:09 | NUR ---
SHIFT SUMMARY DC DELAYED TO [place] TODAY. HOPEFULLY PATIENT WILL GO TOMORROW PER CARE MANAGEMENT. POOR PAIN CONTROL TODAY. PT REPOSITIONED TO HELP WITH THIS AND MEDICATED PER EMAR. SUPPLIED FOR DISCHARGE DELIVERED TO ROOM. WOUND CARE COMPLETED BY WOUND CARE NURSE. AWAITING HOME WOUND VAC TO BE APPROVED AND PLACED. NO OTHER ACUTE CHANGES IN ASSESSMENT AT THIS TIME. VS REVIEWED. CALL LIGHT IN REACH.
[2023-01-24 19:52] VITALS: BP 138/81
--- NOTE | 2023-01-25 05:21 | NUR ---
Shift Summary Pt started out the shift stating 10/10 pain and looking very uncomfortable. Around 1999 pt was asleep, I woke him up for PM medications and he asked not to be woken up again after. Pt slept soundly t/o most of the night. When he woke up at 0400 in pain I gave him his 0000 pain medications, I will hold the 0600 dose. Pt currently sleeping soundly.
[2023-01-25 08:03] VITALS: BP 173/131
[2023-01-25 15:49] VITALS: BP 138/87
--- NOTE | 2023-01-25 17:30 | NUR ---
SHIFT SUMMARY- PT ALERT AND ORIENTED, NO ACUTE CHANGE T/O THE SHIFT. PER REPORT THE PT REQUESTED TO NOT BE WOKEN IN THE IGHT AND SO STAFF WAITED TO MEDICATE THE PT FOR PAIN WITH SCHEDULED PAIN MEDS UNTIL HE WOKE. PT WAS VERY PAINFUL THIS MORNING, AT THE END OF THE SHIFT HE SEMED TO BE LESS PAINFUL WITH HIS SCREAMS AND MANNERISIMS, BUT HE STILL RATES THE PAIN AT 10/10 WHEN ASKED. PT IS NOW ABLE TO CARRY ON A CONVERSATION WITH STAFF WHERE HE COULD NOT THIS MORNING. PT DID RECIEVE A BED BATH TODAY WITH A FULL LINNEN CHANGE D/T SOILING. PT SWEATS PROFUSELY, SO LINNENS CAN BECOME SOILED A COUPLE OF TIMES A SHIFT. PT NO LONGER HAS A WOUND VAC, DRESSINGS ARE TO BE CHANGED THREE TIMES A WEEK. SPOKE TO GLOBAL RECRUITER, SHE WILL NOT SEE THE PT TODAY. PT IS IN BED, CALL LIGHT IN REACH NO S&S OF DISTRESS AT THIS TIME.
[2023-01-25 20:33] VITALS: BP 137/89
--- NOTE | 2023-01-26 04:16 | NUR ---
SHIFT SUMMARY ADMITTED FOR LEFT HIP ULCER/CELLULITIS. FULL CODE. CONTACT PRECAUTIONS FOR MRSA IN WOUND. PLAN IS FOR PLACEMENT AT [facility], PERMITTING THAT WOUND CARE CAN BE ARRANGED. PT HAS SEVERE OSTEOARTHRITIS/CONTRACTURES OF BILATERAL HIPS AND IS WC BOUND AT BASELINE. HE IS HOMELESS. FINGERFOOD DIET. WOUND CARE IS MANAGING HIS WOUND WHILE ADMITTED HERE. HE IS ON RA. HE IS A&O X4 AND ABLE TO MAKE HIS NEEDS KNOWN.
[2023-01-26 05:05] VITALS: BP 155/84
[2023-01-26 07:14] VITALS: BP 134/90
--- NOTE | 2023-01-26 14:39 | NUR ---
WOUND CARE PT LEFT TROCHANTER WOUND MEASURES 6.10.1CM. WOUND BED IS 90% GRANULATION TISSUE WITH 10% ADHERENT SLOUGH. MODERATE SEROSANGUINEOUS NOTED. PERIWOUND SLIGHTLY DENUDED. [employer] WOUND VAC REAPPLIED. WOUND CLEANSED WITH DERMAL WOUND SPRAY. SKIN PREP AND TRANSPARENT FILM TO PERIWOUND. ONE PIECE BLACK FOAM APPLIED, VAC SET TO CONTINUOUS 125MMHG. PT TO CONTINUE WITH 3X WEEK WOUND VAC DRESSING CHANGE. NEXT CHANGE Monday01/30/23. PT TOLERATED WELL
--- NOTE | 2023-01-26 15:19 | NUR ---
SHIFT SUMMARY- PT ALERT AND ORIENTED, PT HAS PERSISTED IN CALLING FREQUENTLY FOR SMALL NEEDS (MOVE THE TABLE [address], PUSH THE BUTTONS TO ADJUST MY BED) THIS WOULD NOT BE AN ISSUE BUT THE PT TELLS STAFF HE NEEDS NOTHING ELSE, EVEN GETTING IRRITATED THEY HAVENT LEFT YET (TRYING TO ENSURE PT NEEDS ARE MET) WITHIN 5 MINUTES OF STAFF LEAVING THE ROOM HE WILL PUSH THE CALL BUTTON AND START YELING THAT HE NEEDS THEM TO COME BACK. PAIN DOES NOT SEEM TO BE WELL MANAGED TODAY EITHER. PT HAS ASKED QUESTIONS ABOUT THE DISCHARGE PLAN SEVERAL TIMES TODAY, CARE MANAGEMENT IS ON THE CASE. IT SEEMS THE PT MAY HAVE SOME MILD ANXIETY ABOUT HIS PENDING DISCHARGE, IT IS A SITUATION COMPLETELY DIFFERENT THAN WHAT HE IS ACCUSTOMED TO. HE DID NOT CALL MUCH YESTERDAY DURRING THE DAY, FREQUENT CALLING SEEMED TO START LAST NIGHT, PER REPORT. PT HAD WOUND VAC PLACED TODAY. IT IS THE WOUND VAC HE WILL BE DISCHARGING WITH. PT IS IN BED, CALL LIGHT IN REACH NO S&S OF DISTRESS NOTED. WILL CTM AND PASS ON IN BEDSIDE REPORT TO NIGHT RN.
[2023-01-26 16:20] VITALS: BP 156/87
[2023-01-26 19:14] VITALS: BP 101/66
--- NOTE | 2023-01-27 04:10 | NUR ---
SHIFT SUMMARY ADMITTED FOR LEFT HIP PRESSURE ULCER/CELLULITIS. FULL CODE. CONTACT PRECAUTIONS FOR MRSA IN WOUND. DISCHARGE WOUND VAC IS IN PLACE ON LEFT HIP, POST I&D 12/08. PLAN IS FOR DC TO ASSISTED LIVING FACILITY WHEN WOUND CARE ARRANGEMENTS CAN BE MADE. PT HAS SEVERE OSEOARTHRITIS/CONTRACTURES IN BILAT HIPS. WC BOUND @ BASELINE. HE IS HOMELESS. HE IS ON RA. HE IS A&O X4. HE CALLS APPROPRIATELY. ALSO THERE ARE STG.2 ULCERS ON LEFT AND LEFT SHOULDER. PAIN MEDICATION IS SCHEDULED.
[2023-01-27 04:14] VITALS: BP 133/82
[2023-01-27 07:24] VITALS: BP 137/86
[2023-01-27 15:06] VITALS: BP 122/80
--- NOTE | 2023-01-27 17:08 | NUR ---
PT IS ALOX4. CALM TODAY. THE PT WAS REPOSITIONED HE ALLOWED TODAY. THE PT WAS OFFERED A BED BATH AND REDUSED THE BATH AT THIS TIME. THE PT WAS MEDICATED FOR PAIN SCHEDULED. PT APPEARS TO BE BREATHING ON RA. CALL LIGHT IN REACH. BED IN THE LOWEST POSITION
[2023-01-27 19:59] VITALS: BP 120/67
[2023-01-28 03:41] VITALS: BP 105/80
[2023-01-28 08:32] VITALS: BP 139/96
[2023-01-28 15:01] VITALS: BP 148/96
--- NOTE | 2023-01-28 18:46 | NUR ---
SUMMARY- NO ACUTE EVENTS THIS SHIFT. NO CHANGES. THIS RN CHANGED WOUND VAC CHAMBER THIS SHIFT. 150ML OF BLOODY OUTPUT NOTED FROM WOUND VAC.
[2023-01-28 19:39] VITALS: BP 108/88
[2023-01-29 02:56] VITALS: BP 149/89
--- NOTE | 2023-01-29 04:05 | NUR ---
SHIFT SUMMARY PATIENT A/Ox4, PLEASANT/COOPERATIVE. PAIN MANAGED PER eMAR. VSS, SpO2 95% ON RA. WOUND VAC IN PLACE TO LEFT HIP, C/D/I, NO LEAKS. NO ACUTE CHANGES OVERNIGHT. BED LOCKED AND IN LOWEST POSITION, HOB ELEVATED FOR PATIENT COMFORT, CALL LIGHT WITHIN REACH.
[2023-01-29 07:25] VITALS: BP 119/67
[2023-01-29 16:08] VITALS: BP 137/92
--- NOTE | 2023-01-29 17:51 | NUR ---
SUMMARY- PT HAS BEEN SLEEPING MOST OF THE SHIFT. PT HAS BEEN DROWSY ALL SHIFT. LUDIN AND MALATHI HELD THIS PM. PT REFUSED BREAKFAST AND LUNCH DUE TO DROWSINESS AND PT WANTED TO "KEEP SLEEPING." PT IS AAOX4. WOUND VAC CHAMBER CHANGED THIS SHFT. 150ML BLOODY OUTPUT NOTED IN WOUND CHAMBERWITH FOUL ODOR.
[2023-01-29 19:17] VITALS: BP 147/94
[2023-01-30 03:12] VITALS: BP 131/82
--- NOTE | 2023-01-30 04:42 | NUR ---
SHIFT SUMMARY PT LAYING IN BED DURING BEDSIDE ROUNDS, WOUND VAC IN PLACE= WNL - PT ON CONTACT PRECAUTIONS PT REQUESTED PAIN MEDICATION - REMINDED PT THAT PAIN MEDICATIONS ARE SCHEDULED- PT YELLING OUT AND MOANING- 1944 GAVE SCHEDULED MEDICATIONS EARLY- PT CONTINUED TO MOAN OUT T/O NIGHT- OFFERED HEAT, ICE, AND REPOSITIONING- PT REFUSED ALL- PT REQUESTED SNACKS T/O NIGHT- REPORT THAT PT DIDN'T EAT ANY MEALS T/O DAY- PT AWAKE ALL NIGHT- PT CALLS APPROPRIATE- PT ALLOWED FOR 1 TURNING IN THE NIGHT, BED LOW POSITION
[2023-01-30 08:00] VITALS: BP 161/109
--- NOTE | 2023-01-30 16:16 | NUR ---
WOUND CARE- HOLD WOUND VAC ON ASSESSMENT L HIP WOUND MALODOROUS WITH PURULENT DRAINAGE. DR. MUNSON NOTIFIED. CULTURE OBTAINED AND CT ORDERED. PLEASE HOLD WOUND VAC AT THIS TIME.
[2023-01-30 16:55] VITALS: BP 145/89
--- NOTE | 2023-01-30 18:42 | NUR ---
SUMMARY- PT AAOX4 THIS SHIFT. IRRITABLE, ANXIOUS, AND DEPRESSED THIS SHIFT. PT EXPRESSED HIS SISTER X3 DAYS AGO AND HE HAS BEEN EXTREMELY SAD SINCE. HE AND HIS STEP BROTHER ARE THE ONLY LIVING SIBLINGS LEFT. RN SUPPPORTED PT EMOTIONALLY AND PHYSICALLY FOR PAIN CONTROL MUCH POSSIBLE THIS SHIFT. RN INFORMED PT SOME OF HIS HIS PAIN MEDS WERE SWITCHED TO PRN, WHICH UPSET PT. WOUND VAC REMOVED FROM PT THIS SHIFT. PT LEFT [address] [facility] FOR [address] OF PELVIS. ALLEVYN COVERING L HIP WOUND.
[2023-01-30 20:21] VITALS: BP 152/88
[2023-01-31 05:12] VITALS: BP 148/89
--- NOTE | 2023-01-31 06:40 | NUR ---
SHIFT SUMMARY A/OX4. CONTRACTED AT HIPS, LIMITED ROM OF UPPER EXT. ROOM AIR. PAIN HAS NOT BEEN CONTROLLED WITH THE NEW DECREASE IN REGIMEN. CALLED DR. PIERSON BACKUP ENGINEER THIS AM AND HE ADDED FENT 25-50 MCG Q4 PRN. PATIENT HAD STATED PAIN WAS 10/10 WAS TEARFUL AND GROANING IN ROOM BUT BY TIME I WENT BACK PATIENT APPEARED TO BE SLEEPING, SO DID NOT WAKE HIM UP. HAD GIVEN PRN NORCO 5/325 PRIOR TO CALLING BACKUP ENGINEER PROVIDER. DRESSING TO LEFT HIP WOUND PLACED BY WOUND CARE NURSE 01/30. STILL INTACT WITH DRAINAGE NOTED. NO NEW ORDERS TO CARE FOR WOUND SINCE WOUND VAC REMOVAL. WOUND CARE FOLLOWING. REPOSITION PATIENT ALLOWS. ABLE TO MAKE NEEDS KNOWN. CALL LIGHT IN REACH. BED LOCKED IN LOW POSITION.
[2023-01-31 07:24] VITALS: BP 127/78
[2023-01-31 08:16] LABS: BASOPHILS ABSOLUTE AUTO 0.07 K/mm3 (0.00-0.23); BASOPHILS PERCENT AUTO 1 % (0-2); EOSINOPHILS ABSOLUTE AUTO 0.52 K/mm3 (0.00-0.68); EOSINOPHILS PERCENT AUTO 7 % (0-6); Hematocrit 36.1 % (37.0-53.0); Hemoglobin 11.9 g/dL (13.5-17.5); IMMATURE GRAN ABSOLUTE AUTO 0.01 K/mm3 (0.00-0.10); IMMATURE GRAN PERCENT AUTO 0 % (0-1); LYMPHOCYTES ABSOLUTE AUTO 1.33 K/mm3 (0.84-5.20); LYMPHOCYTES PERCENT AUTO 17 % (21-46); MONOCYTES ABSOLUTE AUTO 0.75 K/mm3 (0.16-1.47); MONOCYTES PERCENT AUTO 10 % (4-13); Mean Corpuscular HGB 28.7 pg (26.0-34.0); Mean Corpuscular Volume 87 fL (80-100); Mean Platelet Volume 9.6 fL (9.1-12.4); NEUTROPHILS ABSOLUTE AUTO 5.06 K/mm3 (1.96-9.15); NEUTROPHILS PERCENT AUTO 65 % (41-73); Platelet Count 327 K/mm3 (150-400); RDW Coefficient Variation 13.2 % (11.7-14.2); RDW Standard Deviation 41.9 fL (35.1-46.3); Red Blood Cell Count 4.14 M/mm3 (4.30-5.90); White Blood Cell Count 7.74 K/mm3 (4.00-11.30)
[2023-01-31 08:55] LABS: Bun/Creatinine Ratio 42.3 (12.0-20.0); Calcium, Blood 8.9 mg/dL (8.5-10.1); Creatinine, Blood 0.69 mg/dL (0.60-1.20); Potassium, Blood 3.9 mmol/L (3.5-5.5)
--- NOTE | 2023-01-31 10:12 | NUR ---
WOUND CARE CT DID NOT INDICATE DEEP ABSCESS. WOUND VAC REAPPLIED. WOUND CLEANSED DERMAL WOUND. SKIN PREP/TRANSPARENT FILM TO PERIWOUND. ONE PICE BLACK FOAM. VAC SET TO CONTINUOUS 120MMHG. PT TOLERATED WELL
[2023-01-31 15:53] VITALS: BP 122/87
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
--- NOTE | 2023-01-31 17:07 | NUR ---
"Spiritual Care | Pt./Nurse request Pt. is awake in bed and welcomed my visit. This instant powder supervisor had been briefed by the nursing staff that the Pt. had recently learned of the unexpected passing of his sister. Journeyed through the grieving process with the Pt. offering spiritual support through active listening and an engaged and calming presence. Pt. displayed evidence of having had anticipatory grief as his sister had been ill for some time. COnsidered matters of nicole and belief as we considered more of the Pts. life story. Prayed with Pt. Pt. verbalized gratitude for the spiritual care visit and welcomed this instant powder supervisor to return."
[2023-01-31 20:19] VITALS: BP 128/77
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
--- NOTE | 2023-02-01 05:41 | NUR ---
shift summary 61 yr m admitted on 11/29/22 FOR LEFT LEG CELLULITIS. FULL CODE. NO ACUTE CHANGES THIS SHIFT. PT STATED THIS SHIFT THAT HE DID NOT THE ZINC MINER BLASTING IS HIS ROOM ANYMORE. HE STATED THAT SHE WAS ROUGH AND MEAN. HE REFUSED ALL CARE FROM HER THIS SHIFT. HE HAS BEEN VERY NEEDY AND HEAVY ON THE CALL LIGHT ASKING FOR MINOR THINGS. HE STATES HIS PAIN IS HARD TO MANAGE AND ALTHOUGH HE INITIALLY FELT THAT TORADOL WORKED WELL FOR HIM, HE LATER CHANGED HIS MIND AND SAID HE DID NOT WANT IT ANYMORE AFTER TRYING IT TWICE. OTHER PAIN MEDS PER EMAR WERE GIVEN IN AN EFFORT TO CONTROL HIS PAIN.
[2023-02-01 05:42] VITALS: BP 127/73
[2023-02-01 07:45] VITALS: BP 137/79
[2023-02-01 15:24] VITALS: BP 155/86
--- NOTE | 2023-02-01 16:41 | NUR ---
NO ACUTE CHANGES THIS SHIFT. PAIN INPROVED WITH TORADOL. PATIENT TOLERATING DIET. WOUND VAC IN PLACE AND REMAINS INTACT. NEXT DRESSING CHANGE TO BE COMPLETED ON MONDAY PER OANH WOUND CARE NURSE. PATIENT COOPERATIVE WITH CARE AND CALLS APPROPRIATELY FOR ASSISTANCE. TURNING Q2 HOURS. PATIENT TOLERATING DIET. NO NEW CONCENS THIS SHIFT. PATIENT AWAITING PLACEMENT.
[2023-02-01 19:02] VITALS: BP 149/86
[2023-02-02 04:09] VITALS: BP 172/83
--- NOTE | 2023-02-02 05:24 | NUR ---
SHIFT SUMMARY: PT IS ADMITTED FOR LEFT LEG CELLULITIS AND IS A FULL CODE. IS ALERT AND ABLE TO MAKE NEEDS KNOWN. 1-2P FOR ADLs DEPENDING ON ACTIVITY AND HOW HE IS DOING. IS ON CONTACT PRECAUTIONS FOR MRSA IN WOUNDS. PAIN HAS BEEN MANAGED BY PRN AND SCHEDULED MEDICATIONS.
[2023-02-02 07:40] VITALS: BP 167/97
[2023-02-02 16:09] VITALS: BP 164/92
--- NOTE | 2023-02-02 17:20 | NUR ---
PATIENT A/OX4, CALM AND COOPERATIVE WITH CARE. WOUND VAC IN PLACE AND REMAINS C/D/I. WOUND VAC TO BE CHANGED MONDAY. NO NEW CONCERNS THIS SHIFT. PAIN MANAGED WITH CURRENT REGIMEN. AWAITING NURSING HOME PLACEMENT IN [place].
[2023-02-02 20:21] VITALS: BP 157/93
[2023-02-03 04:41] VITALS: BP 129/94
--- NOTE | 2023-02-03 05:20 | NUR ---
SHIFT SUMMARY: PT IS ADMITTED FOR LEFT LEG CELLULITIS AND IS A FULL CODE. IS ALERT AND ABLE TO MAKE NEEDS KNOWN. 1-2P ADLs DEPENDING ON ACTIVITY AND HOW HE IS FEELING. CURRENTLY ON CONTACT PRECAUTIONS FOR MRSA IN WOUND. WOUND VAC TO LEFT HIP IS INTACT WITH MINIMAL DRAINAGE AT THIS TIME. PAIN IS MANAGED BY ROUTINE AND PRN PAIN MANAGEMENT AND IS MOSTLY EFFECTIVE. IV TO LEFT WRIST/FOREARM IS PATENT WITH A DRESSING THAT IS CDI.
[2023-02-03 07:33] VITALS: BP 130/76
--- NOTE | 2023-02-03 18:24 | NUR ---
SHIFT SUMMARY: MAX IS A&OX4. VSS, NO ACUTE EVENTS THIS SHIFT. PT IS TOLERATING PO INTAKE WELL, REPORTS ADEQUATE PAIN RELIEF WITH MEDICAITONS PER MAY, AND PRODUCED ONE BOWEL MOVEMENT THIS SHIFT. WOUND VAC DRESSING CHANGED BY FLOOR CLERK THIS SHIFT. IV TO LEFT FOREARM PATENT. PLAN TO DISCHARGE TO A FACILITY IN [place] Feb. HE IS LYING IN BED WITH THE CALL LIGHT IN REACH. WCTM UNTIL REPORT IS GIVEN TO ELECTRIC METER INSPECTOR RN.
[2023-02-03 20:32] VITALS: BP 139/77
--- NOTE | 2023-02-04 03:54 | NUR ---
SHIFT SUMMARY PT HAVING SIGNIFICANT PAIN TONIGHT. PT HAS BEEN MEDICATED, PER EMAR, ALLOWED. PT HAS BEEN OFFERED TURNING AND PILLOWS FOR UNDER HIS FEET. PT HAS AN APPETITE FOR ROOT BEER AND SALTINES. PT COMPLIANT WITH CARE. CALL LIGHT IS WITHIN PT REACH.
[2023-02-04 05:08] VITALS: BP 151/81
[2023-02-04 07:50] VITALS: BP 123/77
--- NOTE | 2023-02-04 09:00 | NUR ---
pt laying in bed watching tv, making noise, states pain was 10/10, his scheduled morphine was given, and set up for breakfast, a/ox3, cooperative with care, but refusing some meds, lungs are clear dim in bases, on r/a, resp even and unlabored, no cough noted, hrr, no edema noted, ppp+1, cap refill<3sec, vs stable, afebrile, iv site to lfa site is clear and patent, btx4, abd flat soft nontender, incont of urine, skin has wound vac to left hip, legs are contracted, and some contractures in hands, total care, ira, call ligt in reach.
--- NOTE | 2023-02-04 15:38 | NUR ---
POLST FORM, CODE STATUS Met with Richard Fraser II to discuss code status options. Educated in detail the differences between Attempt and Do Not Attempt resuscitation. Richard elected for ATTEMPT resuscitation. Educated in detail all three Medical Interventions (Comfort Measures, Limited and Full). Richard actively participated in discussion and asked appropriate questions. He elected to for LIMITED interventions as he does not want "heroics" POLST filled out to reflect FULL CODE w/LIMITED interventions. POLST pending provider signature. Primary RN notified.
[2023-02-04 16:47] VITALS: BP 143/78
--- NOTE | 2023-02-04 18:01 | NUR ---
pt was started on celebrex today. did have pain but most of the day has been quietly watching tv. no acute changed this shift. call light in reach.
[2023-02-04 19:56] VITALS: BP 140/78
[2023-02-05 02:54] VITALS: BP 128/74
--- NOTE | 2023-02-05 03:47 | NUR ---
SHIFT SUMARY PT ALERT AND ORIENTED. PT LAYS IN BED, MAKING STRANGE NOISES AND HUMMING. PT CONTINUES TO HAVE PAIN AND HAS BEEN MEDICATED PER EMAR WHEN ALLOWED. PT MAKES HIS NEEDS KNOWN AND CALL LIGHT IS WITHIN HIS REACH. PT SEEMS TO HAVE AN INCREASED APPETITE AND HAS EATEN A LOT OF SALTINES, PUDDING, AND ROOT BEER.
--- NOTE | 2023-02-05 05:29 | NUR ---
GAVE PT HIS MORNING MEDICATION AND PAIN MED. PT UPSET BECAUSE I DID NOT PULL THE STRAW OUT OF HIS MOUTH FAST ENOUGH. THIS RN LEFT THE ROOM AND PT PROCEEDED TO HAVE AN ISSUE, CURSING AND THROWING THINGS AROUND. PT STS "I'M AN ASSHOLE BECAUSE I'M IN PAIN".
[2023-02-05 07:57] VITALS: BP 122/75
--- NOTE | 2023-02-05 09:00 | NUR ---
pt laying in bed with eyes closed wakes easily yells out cuss words, lungs are clear t/o, resp even and unlabored, no cough noted, hrr, o edema noted, ppp+1, cap refill< 3sec, vs stable, afebrile, iv site to lfa site is clear and patent, btx4, abd flat soft nontender, voids without diff, is incont at times briefs in place, skin has wound to left hip with wound vac in place, legs are contracted, hands are slightly contracted but can feed himself if everything set up, is total care, ira, call light in reach.
[2023-02-05 16:20] VITALS: BP 138/78
--- NOTE | 2023-02-05 18:44 | NUR ---
pt seemed to have a calmer day today, explained the pain scale a bit for better understanding because he reports very little relief when medicated, he said oh no, it comes down to about a 4 or 5, has been repositioned through out the day, no further changes this shift. call light in reach.
[2023-02-05 19:37] VITALS: BP 129/91
--- NOTE | 2023-02-05 22:43 | NUR ---
PT ORDERED AND HAD REMA'S DELIVERED.
[2023-02-06 01:46] VITALS: BP 156/84
--- NOTE | 2023-02-06 03:46 | NUR ---
SHIFT SUMMARY PT HAS NOT HAD MUCH SLEEP THIS SHIFT. PT LAYING IN BED, MAKING STRANE NOISES, AND CURSING AT TIMES. PT HAD A LARGE SNACK AT SHIFT CHANGE AND THEN ORDERED FOOD FROM [employer]. FAMILY CONSUMER SCIENCE FCS TEACHER REPOSITIONED PT AND CLEANED HIM UP. CALL LIGHT IS WITHIN HIS REACH AND PT HAS DEMONSTRATED UNDERSTANDING OF ITS USE. WOUND VAC STILL IN PLACE ON L AND WAS LAST CHANGED ON MONDAY.
[2023-02-06 09:16] VITALS: BP 136/97
--- NOTE | 2023-02-06 11:09 | NUR ---
WOUND CARE WOUND VAC DRESSING CHANGED PER ORDER. PERIWOUND IS MUCH IMPROVED. NO PURULENT DRAINAGE NOTED. ONE PIECE BLACK FOAM REMOVED , CLEANSED WITH DERMAL WOUND. SKIN PREP AND TRANSPARENT FILM TO PERIWOUND. ONE PIECE BLACK FOAM REAPPLIED. VAC SET TO CONTINUOUS 120MMHG. NEW PHOTO AND ASSESSMENT IN HARD CHART. PT TOLERATED WELL
--- NOTE | 2023-02-06 17:27 | NUR ---
SHIFT SUMMARY PT AOX3-4, BR. WOUND VAC CHANGED THIS SHIFT BY THE WOUND CLINIC. PT IN PAIN AND MEDICATED PER THE EMAR. NEW MEDICATIONS ADMINISTERED VIA THE EMAR ALSO. PT SLEPT MOST OF THE AFTERNOON. PLACEMENT SET FOR 02/13. CALL LIGHT WITHIN REACH, BED IN THE LOWEST POSITION. WILL REPORT TO ONCOMING NURSE.
[2023-02-06 19:16] VITALS: BP 159/98
[2023-02-07 01:13] VITALS: BP 148/90
--- NOTE | 2023-02-07 04:02 | NUR ---
SHIFT SUMMARY PATIENT A/Ox4, PLEASANT/COOPERATIVE. CHRONIC PAIN MANAGED WITH ROUTINE AND PRN ANALGESIC MEDICATIONS PER EMAR. WOUND VAC IN PLACE TO LEFT HIP, NO LEAKS, DSG C/D/I. CALLS APPROPRIATELY. NO ACUTE CHANGES NOTED OVERNIGHT. BED LOCKED, CALL LIGHT WITHIN REACH.
[2023-02-07 07:41] VITALS: BP 152/101
--- NOTE | 2023-02-07 17:18 | NUR ---
SHIFT SUMMARY PT AOX4, SLEPT MOST OF THE SHIFT AFTER A BED BATH. PAIN MANAGED BY MEDICATIONS ON THE EMAR. HE CALLS AND MAKES HIS NEEDS KNOWN. HE IS AWAITING PLACEMENT THAT IS SCHEDULED FOR 02/13 OR . CALL LIGHT WITHIN REACH, BED IN THE LOWEST POSITION. WILL REPORT TO ONCOMING NURSE.
[2023-02-07 19:41] VITALS: BP 143/85
--- NOTE | 2023-02-08 04:43 | NUR ---
SUMMARY: PT A/OX4 AND CALLS APPROPRIATELY TO SPECIFY NEEDS. HE WAS AWAKE MAJORITY OF NOCTE W/PAIN WELL MANAGED W/SCHEDULED AND PRN MEDS PER EMAR. WOUND VAC DX TO L.HIP TO BE CHANGED TODAY AND HE'S AWAITING PLACEMENT W/INTENDED D/C ON 02/13 OR 02/14. NO ACUTE CHANGES, VSS/AFEBRILE. WCTM AND REPORT TO DAY RN.
[2023-02-08 04:44] VITALS: BP 157/77
[2023-02-08 07:22] VITALS: BP 152/97
[2023-02-08 15:36] VITALS: BP 162/108
--- NOTE | 2023-02-08 16:54 | NUR ---
SHIFT SUMMARY PATIENT EAGER TO TRANSFER TO FACILITY. PATIENT ALERT AND INTERACTIVE. SOMETIMES RESISTANT ESPECIALLY WITH TURNING. PATIENT NOTED TO HAVE PRESSURE WOUND ON R OUTER FOOT. PATIENT REFUSES TO TURN OFTEN AND TENDS TO LAY ON THAT SIDE WITH FEET UNDER HIM. PATIENT VERY CONTRACTED WITH ALL EXTREMETIES. PATIENT STATING THAT HE WILL NOT STAY OFF R SIDE FOR LONG EVEN AFTER BEING EDUCATED ABOUT NEW WOUND ON R FOOT. PATIENT MEDICATED PER MAR FOR PAIN. PATIENT REFUSING CELEBREX BECAUSE OF NAUSEA, REFUSING MEDICATED RUB BECAUSE IT CAUSES MORE PAIN. BED BATH GIVEN AND SKIN CARE PROVIDED ABLE.
[2023-02-08 21:08] VITALS: BP 147/86
[2023-02-09 02:59] VITALS: BP 154/84
[2023-02-09 07:18] VITALS: BP 144/88
--- NOTE | 2023-02-09 15:33 | NUR ---
SHIFT SUMMARY PT RESTING QUIETLY AT START OF SHIFT. DID NOT WANT TO BE BOTHERED FOR BREAKFAST UNTIL HE WOKE UP. DR NICHOLS IN EARLY TO SEE PT AND DISCUSS PLAN OF CARE. PT TO D/C TO [facility] ON MONDAY. L BUTTOCK WOUND PATENT. PER REPORT, TO BE CHANGED AGAIN TOMORROW. WOUND TO LATERAL SIDE OF R FOOT; PICTURES TAKEN WHEN PT REPOSITIONED, BUT TURNED OUT DARK. TO BE RETAKEN WHEN REPOSITIONED AGAIN. PT DOES NOT LIKE TO TURN TO L SIDE IN ORDER TO CO-OP. BLE'S WITH CONTRACTURES; PADS PLACED BETWEEN KNEES AND PILLOWS UNDER FEET. MEDICATED PER EMAR FOR C/O PAIN TO HIPS. DENIES FURTHER NEEDS AT THIS TIME. CALL LT IN REACH AND ABLE TO MAKE NEEDS KNOWN.
[2023-02-09 15:58] VITALS: BP 135/92
[2023-02-09 19:47] VITALS: BP 151/105
--- NOTE | 2023-02-10 00:21 | NUR ---
SHIFT SUMMERY, PT RESTING IN BED,SLEEPING OFF AND ON TONIGHT. PT CALLING FREQUENTLY TONIGHT AND WANTING IMMEDIATE ATENTION. PT POSSIBLY WORRIED ABOUT UP COMMING DC TO CARE FACILITY. ROULA LIGHT IN REACH. PT WOUND TO RIGHT FOOT AND HAS BEEN CATIONED ABOUT LAYNG IN SAME POSITION TO PEVENT MORE PRESURE WOUNDS BUT PT VERY INSISTANT ABOUT WHERE PILLOWS ARE AND WHAT POSITION HE IS IN.
[2023-02-10 03:17] VITALS: BP 141/77
[2023-02-10 07:20] VITALS: BP 139/88
[2023-02-10 16:32] VITALS: BP 150/83
--- NOTE | 2023-02-10 16:42 | NUR ---
SHIFT SUMMARY: NO NEW ACUTE CHANGES IN PATIENT CONDITION THIS SHIFT. PATIENT A/OX4, CALM, PLEASANT AND COOPERATIVE c CARE. PATIENT USES CALL LIGHT APPROPRIATELY AND ABLE TO MAKE NEEDS KNOWN. WOUND VAC TO L HIP INTACT c MINIMAL DRAINAGE. PAIN TO HIPS IS MANAGE c SCHEDULED AND PRN PAIN MEDS PER EMAR. PATIENT WAS SEEN c DENTAL HYGIENIST THIS AM FOR ULCER TO HIS LOWER RIGHT SIDE OF MOUTH. PATIENT WAS ABLE TO RINSE HIS MOUTH c WARM SALT H2O PER ORDER. VITAL SIGNS REVIEWED. PIV TO L FOREARM SALINE LOCKED. CALL LIGHT IN REACH.
--- NOTE | 2023-02-10 17:04 | NUR ---
SHIFT SUMMARY: PATIENT ALERT AND ORIENTED TO SELF AND PLACED. PATIENT CONTINUES TO BE VERBALLY ABUSIVE TO STAFF. PATIENT DOES NOT USES CALL LIGHT, ANXIOUS AND IMPULSIVE AT TIMES BUT REDIRECTABLE. PATIENT HAS 1:1 SITTER OUTSIDE HIS ROOM FOR SAFETY. PATIENT IS CONTINENCE/INCONTINENCE OF BLADDER AND HAS BEEN AMBULATING TO BATHROOM AND BACK IN BED c 1 ASSIST, GAITBLET AND FWW T/O SHIFT. NO IV ACCESS PER ORDER. PATIENT DENIES CP/PRESSURE, SOB, N/V AND DIZZINESS. PATIENT RECEIVED SCHEDULED MEDS PER EMAR. VITAL SIGNS REVIEWED. BED ALARM ON FOR SAFETY. CALL LIGHT IN REACH.
[2023-02-10 19:49] VITALS: BP 152/78
--- NOTE | 2023-02-11 01:45 | NUR ---
SHIFT LINDA, PT RESTING IN BED, PT INTERMITANT SLEEP. PT MEDICATED FOR PAIN AND GIVEN NOC MEDS. PT ALSO GIVEN HIS HS SNACKS. PT CALLED LATER PT NOT WANTING TO LEAVE IN IV TOLD PT WE WOULD LEAVE IT IN [place] ON MONDAY IN CASE PT NEEDED EMERGENCY MEDS. CALL LIGHT IN REACH.
[2023-02-11 08:32] VITALS: BP 136/90
[2023-02-11 15:34] VITALS: BP 167/93
--- NOTE | 2023-02-11 17:35 | NUR ---
SHIFT SUMMARY MR MYLES HAS BEEN SLEEPING A LOT THIS SHIFT. AWAKES EASILY TO VOICE. I ASKED HIM THIS MORNING WHY HE WAS NOT SITTING UP IN THE CHAIR AND HE SAID IT WAS BECAUSE NOONE WOULD HELP HIM TO GET UP. I HAVE OFFERED TO HELP HIM TO GET UP OUT OF BED ON SIX DIFFERENT OCCASIONS TODAY AND EACH TIME HE HAS TOLD ME THAT HE IS NOT WILLING TO GET UP. I HAVE ENCOURAGED HIM TO DO THE PHYSICAL THERAPY EXERCISES THAT ARE ON HIS BOARD AND EACH TIME HE DECLINED TO DO THEM. HE SAID THAT HE JUST WANTS TO GO BACK TO SLEEP. HE WAS ENCOURAGED TO WAKE UP AND GET UP SO HE COULD SLEEP BETTER TONIGHT. WOUND VAC TO LEFT HIP WITH 120MMHG SXN AND VISIBLE DARK RED DRAINAGE IN SXN TUBING. PRESSURE SORES ON OUTER LEFT FOOT DRESSED WITH MEPILEX, PADDED WITH PILLOWS AND PT ASSISTED TO TURN OFF HIS RIGHT SIDE THOUGH HE FREQUENTLY MIGRATES BACK TO HIS RIGHT SIDE. SEVERE LEG CONTRACTURES. ALSO C/O LEFT SHOULDER PAIN WHEN HE IS TURNED. BED LOW, CALL LIGHT IN REACH.
[2023-02-11 20:14] VITALS: BP 146/90
[2023-02-12 02:36] VITALS: BP 152/98
--- NOTE | 2023-02-12 04:55 | NUR ---
NOC SHIFT SUMMARY: REPOSITIONED IN BED ALLOWED. SCHEDULED PAIN MEDICATIONS GIVEN. CONTINUOUSLY ASKS FOR SNACKS THROUGHOUT NIGHT. WOUND VAC IN PLACE TO RIGHT HIP. POSSIBLE DISCHARGE ON MONDAY. BED IN LOW POSITION. CALL LIGHT WITHIN REACH.
[2023-02-12 09:39] VITALS: BP 145/85
--- NOTE | 2023-02-12 16:19 | NUR ---
DAY SHIFT SUMMARY PT A/OX4. NO ACUTE CHANGES. PT MAKING NEEDS KNOWN. PT C/O INTENSE PAIN THIS AM; PT DIAPHORETIC. GAVE PRN NORCO AND FLEXERIL WITH GOOD EFFECT. WOUND VAC IN PLACE TO LEFT HIP; SEAL PATENT; SUCTITON AT 125mmHg. PT AWAITING DISCHARGE TO FACILITY TOMORROW. PT EAGER FOR DISCHARGE.
[2023-02-12 16:40] VITALS: BP 98/68
--- NOTE | 2023-02-13 04:41 | NUR ---
NOC SHIFT SUMMARY: NO CONCERNS OVERNIGHT. COMPLETE BED CHANGE ONCE. REPOSITIONED ONCE. POSSIBLE DISCHARGE TODAY. BED IN LOW POSITION. CALL LIGHT WITHIN REACH.
[2023-02-13 08:13] VITALS: BP 132/92
--- NOTE | 2023-02-13 10:37 | NUR ---
WOUND VAC CHARGING NEW WOUND VAC [facility]. CONTINUE POC.
--- NOTE | 2023-02-13 11:03 | NUR ---
WOUND CARE SUPPLIES WOUND CARE SUPPLIES AT THE NEW FACILITY. ATTMEPTING TO LOCATE CANNISTER AND DRESSING SUPPLIES TO CHANGE TO NEW WOUND VAC. CONTINUE POC.
--- NOTE | 2023-02-13 11:34 | NUR ---
WOUND VAC WOUND VAC CHANGED TO THE 3M OUT PT UNIT. WOUND CARE DONE. WASHED WITH WOUND SUPERVISOR PHOTOENGRAVING. WOUND BED HEALING. LOOKS MORE LIKE A RED ABRASION. NO POCKET OR DRAINAGE NOTED. NO ODOR NOTED. CUT BLACK FOAM TO SIZE. USED SKIN PREP TO PROTECT INTACT SKIN BEOFE APPLYING CLEAR SHEET TAPE. CUT SMALL WHOLE PLACED SUCTION TUBING NATIVE TO WHOLE. PLACED ANOTHER LAYER OF TAPE OVER THE NATIVE TO HELP SUPPORT. ATTACHED TO NEW WOUND VAC. 125 MMHG APPPLIED TO WOUND. NO LEAK NOTED. CONTINUE POC.
== END 2023-02-13 13:21 | DRG 853 ==
LOC: ER 16:59 → MEDS 21:10 → ENPENDDIS 01-20 10:22 → MEDS 02-13 13:21
PROVIDERS: Emergency Medicine; Hospitalist; Internal Medicine; Nurse Practitioner Acute Care; Surgery; ADMIT Internal Medicine
PROC: 3E03329 Introduction of Other Anti-infective into Peripheral Vein, Percutaneous Approach (ICD-10-PCS; 2022-11-29)
PROC: 0JBM0ZZ Excision of Left Upper Leg Subcutaneous Tissue and Fascia, Open Approach (ICD-10-PCS; principal; 2022-12-08 12:30)
DX: A41.9 Sepsis, unspecified organism (principal); L89.223 Pressure ulcer of left hip, stage 3; M62.82 Rhabdomyolysis; L03.116 Cellulitis of left lower limb; I96 Gangrene, not elsewhere classified; Z59.02 Unsheltered homelessness; L89.892 Pressure ulcer of other site, stage 2; M15.9 Polyosteoarthritis, unspecified; M24.552 Contracture, left hip; M24.551 Contracture, right hip; I10 Essential (primary) hypertension; K21.9 Gastro-esophageal reflux disease without esophagitis; B96.4 Proteus (mirabilis) (morganii) as the cause of diseases classified elsewhere; B96.89 Other specified bacterial agents as the cause of diseases classified elsewhere; D64.9 Anemia, unspecified; K59.00 Constipation, unspecified; G58.8 Other specified mononeuropathies; Z74.09 Other reduced mobility; Z99.3 Dependence on wheelchair; Z87.891 Personal history of nicotine dependence
CPT/HCPCS: 36415; 72193; 73521; 73701; 80048; 80053; 80069; 82550; 82728; 83540; 83550; 83605; 83735; 84100; 85025; 85027; 87040; 87070; 87075; 87077; 87147; 87186; 87205; 88305; 94760; 94762; 96361; 96365; 97110; 97162; 97165; 97530; 97535; 99285-25; A9270; C9113; J0690; J0696; J1170; J1650; J1885; J2250; J2405; J2704; J3010; J7030; J7050; Q9967